=== PATIENT | male | born 1980 | race Caucasian/White ===

== ENCOUNTER 2019-01-15 10:52 | Inpatient (IN) ==
[2019-01-15] MEDS ORDERED: OPTIRAY 320 125ml IV PRN (11:05)
--- NOTE | 2019-01-15 11:10 | CT Scan Report ---
HEAD CT NONCONTRAST CT DOSE: 1154.88 mGy.cm HISTORY: right facial weakness, slurred speech TECHNIQUE: Multiaxial CT images of the head were performed without the use of intravenous contrast. A utomated exposure control was utilized for this study. A dose lowering technique was utilized adheri ng to the principles of ALARA. Comparison: None. Findings: The paranasal sinuses and mastoid air cells are clear. The calvarium and skull base are int act. The ventricles and sulci are within normal limits. There is no mass, hematoma, midline shift, or acute infarct. Focal hypodensity within the left periventricular white matter which measures approxi mately 2.6 cm. This appears to represent encephalomalacia from a subacute to chronic infarct/insult. Impression: Focal hypodensity within the left periventricular white matter which measures approximately 2.6 cm. T his appears to represent encephalomalacia from a subacute to chronic infarct/insult. Electronically signed by: Luis Bustillo M.D. 01/15/2019 11:09 AM
[2019-01-15 11:13] LABS: Basophils # (auto) 0.03 K/uL (0-0.2); Basophils % (auto) 0.5 %; Eosinophils # (auto) 0.12 K/uL (0-0.5); Eosinophils % (auto) 2.1 %; Hematocrit (blood only) 46.3 % (42-52); Hemoglobin 16.6 g/dL (14.0-18.0); Immature Granulocytes # (auto) 0.01 K/uL (0.00-0.02); Immature Granulocytes % (auto) 0.2 %; Lymphocytes # (auto) 2.07 K/uL (1.2-3.4); Mean Corpuscular Hemoglobin 30.9 pg (25-34); Mean Corpuscular Hgb Conc 35.9 g/dL (32-36); Mean Corpuscular Volume 86.2 fL (80-100); Monocytes # (auto) 0.34 K/uL (0.11-0.59); Monocytes % (auto) 6.1 %; Neutrophils # (auto) 3.03 K/uL (1.4-6.5); Neutrophils % (auto) 54.1 %; Platelet Count 250 K/uL (130-400); RDW Coefficient of Variation 12.9 % (11.5-14.5); RDW Standard Deviation 40.8 fL (36.4-46.3); Red Blood Count 5.37 M/uL (4.7-6.1)
[2019-01-15] MEDS ORDERED: INSULIN HUMAN REGULAR IV STA (11:14)
[2019-01-15 11:24] LABS: Partial Thromboplastin Ratio 0.9; Partial Thromboplastin Time 25.1 Seconds (21.0-31.0); Prothrombin Time 9.9 Seconds (9.0-12.0)
--- NOTE | 2019-01-15 11:26 | CT Scan Report ---
HEAD & NECK CTA HISTORY: right facial weakness, slurred speech TECHNIQUE: Multiaxial CT images of the head were performed following the intravenous administration o f contrast to evaluate the major cerebral vessels. Multiaxial CT images of the neck were also perform ed following the intravenous administration of contrast to evaluate the major cervical vessels. Maxim um intensity projection images were also obtained. A dose lowering technique was utilized adhering to the principles of ALARA. COMPARISON: Head CT 01/15/2019. FINDINGS: Hypodensity within the left periventricular white matter is better appreciated on the same day head C T. Visualized intracranial internal carotid arteries, distal vertebral arteries, and basilar artery a re widely patent. 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 The major dural venous sinuses are patent. The aortic arch and proximal great vessels are widely patent. There is no significant stenosis, occ lusion, or dissection identified within the bilateral common carotid, internal carotid, or vertebral arteries. Mild noncalcified atherosclerotic plaque within the bilateral carotid bulbs. IMPRESSION: 1. No significant stenosis, occlusion, or aneurysm within the [place]. 2. No significant stenosis, occlusion, or dissection identified within the carotid or vertebral arter ies. 3. Hypodensity within the left periventricular white matter is better appreciated on the same day hea d CT. Electronically signed by: Luis Bustillo M.D. 01/15/2019 11:24 AM
--- NOTE | 2019-01-15 11:26 | CT Scan Report ---
HEAD & NECK CTA HISTORY: right facial weakness, slurred speech TECHNIQUE: Multiaxial CT images of the head were performed following the intravenous administration o f contrast to evaluate the major cerebral vessels. Multiaxial CT images of the neck were also perform ed following the intravenous administration of contrast to evaluate the major cervical vessels. Maxim um intensity projection images were also obtained. A dose lowering technique was utilized adhering to the principles of ALARA. COMPARISON: Head CT 01/15/2019. FINDINGS: Hypodensity within the left periventricular white matter is better appreciated on the same day head C T. Visualized intracranial internal carotid arteries, distal vertebral arteries, and basilar artery a re widely patent. 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 The major dural venous sinuses are patent. The aortic arch and proximal great vessels are widely patent. There is no significant stenosis, occ lusion, or dissection identified within the bilateral common carotid, internal carotid, or vertebral arteries. Mild noncalcified atherosclerotic plaque within the bilateral carotid bulbs. IMPRESSION: 1. No significant stenosis, occlusion, or aneurysm within the [place]. 2. No significant stenosis, occlusion, or dissection identified within the carotid or vertebral arter ies. 3. Hypodensity within the left periventricular white matter is better appreciated on the same day hea d CT. Electronically signed by: Luis Bustillo M.D. 01/15/2019 11:24 AM
[2019-01-15 11:29] LABS: iSTAT Creatinine 0.9 mg/dl (0.6-1.3); iSTAT Hemoglobin 15.3 g/dl (14.0-18.0); iSTAT Ionized Calcium 1.18 mmol/l (1.12-1.32); iSTAT Potassium 5.7 mEq/L (3.3-5.0)
[2019-01-15] MEDS ORDERED: SODIUM CHLORIDE 0.9% 1000ML 1,000 ML IV SCH (11:30)
[2019-01-15] MEDS ORDERED: NovoLIN-R INSULIN PER UNIT CHARGE ONE (11:44)
[2019-01-15] MEDS ORDERED: ASPIRIN CHEW 324 MG PO STA (11:48)
[2019-01-15 11:59] LABS: Lyme Ab IgG w/WB Rflx Negative (Negative); Lyme Ab IgM w/WB Rflx Negative (Negative)
[2019-01-15 12:02] LABS: Appearance Urine Clear (Clear); Bilirubin Urine Negative (Negative); Blood Urine Negative (Negative); Color Urine Yellow; Glucose Urine UA 3+ (Negative); Ketones Urine Negative (Negative); Leukocyte Esterase Urine Negative (Negative); Nitrite Urine Negative (Negative); Protein Urine Negative (Negative); Specific Gravity Urine > 1.045 (1.000-1.030); Urobilinogen Urine Negative (Negative); pH Urine 5.5 (4.5-7.5)
[2019-01-15 12:04] LABS: Alanine Aminotransferase 23 U/L (12-78); Albumin Globulin Ratio 0.9 (0.9-2); Albumin Level 3.9 gm/dl (3.4-5.0); Alkaline Phosphatase 93 U/L (45-117); Aspartate Aminotransferase 14 U/L (15-37); BUN Creatinine Ratio 18.8 (10-20); Bilirubin,Total 0.7 mg/dl (0.2-1); Blood Urea Nitrogen 20 mg/dl (7-18); Calcium 9.3 mg/dl (8.5-10.1); Carbon Dioxide 30 mmol/L (21-32); Chloride 97 mmol/L (98-107); Creatinine Clr Calc Pharmacy 110.9 ml/min; Est GFR (African American) 103.9; Est GFR (Non-African American) 89.6; Globulin 4.4 gm/dl (2.5-4.0); Glucose 367 mg/dl (70-99); Magnesium 2.4 mg/dl (1.8-2.4); Potassium 4.5 mmol/L (3.5-5.1); Sodium 134 mmol/L (136-145); Total Protein 8.3 gm/dl (6.4-8.2); Troponin I < 0.015 ng/ml (0-0.045)
[2019-01-15 12:20] LABS: Beta-Hydroxybutyrate 1.93 mg/dl (0.2-2.81)
[2019-01-15 12:21] LABS: Amphetamines+Metham, Urine Neg (Neg); Barbiturates, Urine Neg (Neg); Benzodiazepine, Urine Neg (Neg); Cocaine, Urine Neg (Neg); MDMA (Ecstacy), Urine Neg (Neg); Methadone, Urine Neg (Neg); Opiate, Urine Neg (Neg); Phencyclidine, Urine Neg (Neg)
[2019-01-15] MEDS ORDERED: PHARMACY GLYCEMIC MGMT CONSULT PRN (13:01)
[2019-01-15] MEDS ORDERED: INSULIN GLARGINE SOLOSTAR 100 UNITS/ML 3 ML PEN SC ONE (13:15)
--- NOTE | 2019-01-15 14:18 | History & Physical Report ---
Date of Service January 15, 2019 Assessment & Plan (1) Transient ischemic attack: Admit to PCU on telemetry Vital signs every 4 hours Neurochecks every 4 hours for 24 hours Given aspirin 325 mg daily Started atorvastatin 40 mg daily and upgrade as needed when lipid panel available N.p.o. now until patient passes dysphagia past, and he passes the test DM type I diet Diabetic education Diabetic packet Patient does not know how to use his insulin pump adequately. Dysphasia test Speech pathology Echocardiogram MRI of the brain without contrast US lower extremity with venous Doppler to rule out DVT EKG pending Monitor CBC daily, A1c pending, lipid panel pending, TSH pending CMP 6 hours for hyperkalemia 5.7-->4.3 DVT prophylaxis Lovenox 40 mg subcu daily Full code Present on Admission?: Yes (2) Hyperglycemia: As the above Present on Admission?: Yes (3) Type 1 diabetes: As the above (4) Hyperkalemia: See above Present on Admission?: Yes History of Present Illness Chief Complaint: Fluids speech Primary Care Provider: NO PCP Aki patient is a 38 years old male with past medical history of type 1 diabetes as his only issue poorly controlled who was brought by the ambulance to the emergency room with a complaint of right side face droop slowed speech weakness in his right arm. Patient blood sugar admission was 422 which improved with IV insulin and Lantus. Per history patient felt that his tongue was swollen last night around 6 PM had to dinner and went to sleep. During the day he was celebrating his children's birthday. Before he went to sleep his told him that he should go to the emergency room which patient refused. In the morning patient woke up at 7 and continued to feel that his speech is slurred and he did not feel the right side of his face as well as he had some weakness in his right arm. At that time he decided to call EMS. In the ER telemetry stroke was called and Dr. Martell neurologist from [facility] recommended to do a work-up for stroke and not to give TPA since patient was out of the window. She recommended aspirin 325, atorvastatin average dose until lipid panel is available , improving glycemic control, neurochecks every 4 hours for 24 hours, telemetry admission, echocardiogram, rule out DVT, keep n.p.o. until patient pa sses swallow study, MRI of the brain. Revisiting patient again and discussing CTA of the head and neck it became more clear that patient does not have acute stroke and that similar occasion happened 10 years ago when patient fell from the stairs had slurred speech, he was taken to the emergency room but it was not suspected a stroke. The case was discussed with radiology Dr. Luis Bustillo who read the CTA of the head and neck and he stated that he believes that hypodensity within the left periventricular right white matter of 2.6 cm appears to be old or chronic stroke rather than new one. Labs were reviewed: White blood cell 5.6, red blood cells 5.3 hemoglobin 15.3 hematocrit 46.3 platelets 250. PT 9.9, INR 1, APTT 25.5. Sodium 133, potassium 5.7 chloride 95, BUN 23, creatinine 1.05, GFR 89.6, initial glucose 367, repeated 422, after IV insulin 188. AST 14, ALT 23, alkaline phosphatase 93, troponin I 0.015 Albumin 3.9. BNP pending TSH pending lipid panel pending, A1c pending. CTA of the head: No significant stenosis, occlusion or aneurysm within the [place]. No significant stenosis, occlusion or dissection identified within the carotid or vertebral arteries. Hypodensities in the left periventricular white matter is better appreciated on the CT of the head. CT of the head without contrast: Focal hypodensity within the left periventricular white matter which measures approximately 2.6 cm. This appears to represent encephalomalacia from subacute to chronic infarct. MRI brain pending. Decision was made to admit patient to the PCU on telemetry for transient ischemic attack and hyperglycemia. 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 Beliefs That Will Affect Care: None marital status: Current Living Situation: Family and Significant Other Other Information That Helps Us Care for You: No Feels Safe at Home: Yes Safety Concerns: Feels Safe At This Time Smoking Status: Never smoker Do You Dip or Chew Tobacco: No ; Second Hand Exposure: No ; Tobacco Cessation Education Requested by Patient: No Hx Alcohol Use: No Hx Substance Use: No Review of Systems Review of Systems: All systems reviewed & are unremarkable except as noted in HPI & below Physical Exam Constitutional: WD/WN, vitals as above well developed Eyes: PERRL, conjunctivae normal, anicteric sclerae ENMT: external ear and nose normal, oropharynx normal Neck: trachea midline, no thyromegaly Respiratory: normal respiratory effort, lungs clear to auscultation Cardiovascular: RRR, no murmur, no edema Chest (Breasts): normal inspection/palpation of breasts Gastrointestinal (Abdomen): normal bowel sounds, soft, nontender, no hepatosplenomegaly Musculoskeletal: no cyanosis or clubbing, extremities motor strength 5/5 Skin: no rashes, warm and dry Neurologic: Speech / Cognition: + abnormal speech (slurred speech) Right face droop disappeared and now normal. Right hand strong 5/5 Psychiatric: A+Ox3, euthymic affect Lymphatic: no cervical or axillary lymphadenopathy Results & Data Vital Signs (Past 12 Hours) Vital Signs Temp Pulse Pulse Resp BP BP Pulse Ox 01/15/19 12:50 87 18 138/91 98 01/15/19 11:52 82 18 161/85 H 98 01/15/19 11:14 36.8 C 78 18 161/96 H 97 Code Status & VTE Plan Code Status Full code VTE Prophylaxis Plan VTE Prophylaxis will be ordered: Yes PG Care Time/CCT Total # of Minutes Spent Total Time Spent with Patient: Total time spent is greater than 50% in coordination of care (as documented) at patient's floor/unit and/or counseling patient: (1) Type 1 diabetes Diabetes mellitus complication status: without complication Qualified Code(s): E10.9 - Type 1 diabetes mellitus without complications
[2019-01-15] MEDS ORDERED: SODIUM POLYSTYRENE SULFONATE 15G/60ML SUSP PO STA (14:47)
[2019-01-15] MEDS ORDERED: CARBOHYDRATES FOR HYPOGLYCEMIA PO PRN (15:15)
[2019-01-15] MEDS ORDERED: GLUCOSE 10 TABS/TUBE PO PRN ×2 (15:15→15:50)
[2019-01-15] MEDS ORDERED: GLUCAGON FOR INJ 1 MG VIAL IM PRN (15:15)
[2019-01-15] MEDS ORDERED: GLUCOSE 40% GEL 15 GM TUBE PO PRN ×2 (15:15→15:50)
[2019-01-15] MEDS ORDERED: DEXTROSE 50% 50 ML SYRINGE IV PRN ×2 (15:15→15:50)
--- NOTE | 2019-01-15 15:40 | Magnetic Resonance Report ---
Brain MRI WITH AND WITHOUT CONTRAST HISTORY: Facial droop. Slurred speech. Abnormal head CT. TECHNIQUE: Multiplanar multisequence MRI of the brain was performed both before and after the intrave nous administration of contrast. COMPARISON STUDY: Head CT 01/15/2019. FINDINGS: Multiple foci restricted diffusion seen within the cortical and white matter of the left fr ontal lobe. Dominant area within the left periventricular white matter measures 2.8 cm. The majority of the cortical foci of restricted diffusion are subcentimeter. These are consistent with acute infar cts. These are likely within the left MCA territory. Vasogenic edema associated with the left frontal infarction. The midline structures are intact. A few additional scattered punctate foci of T2 hyperi ntensity seen within the white matter of the supratentorial brain are nonspecific but could represent microvascular ischemic change, a demyelinating disease, or a vasculitis in the appropriate clinical setting. No acute hemorrhage or midline shift. The paranasal sinuses and mastoid air cells are clear. The intravascular flow voids at the skull base are well-maintained. The ventricles are normal in siz e. 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 Electronically signed by: Luis Bustillo M.D. 01/15/2019 3:38 PM
[2019-01-15] MEDS ORDERED: GLUCAGON FOR INJ 1 MG VIAL SQ PRN (15:50)
[2019-01-15] MEDS ORDERED: ACETAMINOPHEN 325 MG TAB PO PRN (15:50)
[2019-01-15] MEDS ORDERED: ZOLPIDEM TARTRATE 5 MG TAB PO PRN (15:50)
[2019-01-15] MEDS ORDERED: PHARMACY GLYCEMIC MGMT CONSULT STA (15:50)
[2019-01-15] MEDS ORDERED: DC ALL PREVIOUSLY ORDERED DIABETES MEDS ONE (15:50)
[2019-01-15] MEDS ORDERED: MAGNESIUM HYDROXIDE SUSP 30 ML UDC PO PRN (15:50)
[2019-01-15] MEDS ORDERED: POLYETHYLENE (MIRALAX) 17 GM PACK PO PRN (15:50)
[2019-01-15] MEDS ORDERED: ALUMINUM/MAGNESIUM SUSP 30 ML UDC PO PRN (15:50)
[2019-01-15] MEDS: SODIUM CHLORIDE 0.9% 1000ML 1,000 ML IV SCH (16:20)
[2019-01-15 16:36] LABS: Albumin Level 3.5 gm/dl (3.4-5.0); BUN Creatinine Ratio 20.1 (10-20); Calcium 9.5 mg/dl (8.5-10.1); Creatinine Clr Calc Pharmacy 129.4 ml/min; Est GFR (African American) 125.1; Potassium 4.3 mmol/L (3.5-5.1)
[2019-01-15 16:38] LABS: Albumin Globulin Ratio 0.9 (0.9-2); Bilirubin,Total 0.7 mg/dl (0.2-1); Globulin 4.1 gm/dl (2.5-4.0); Total Protein 7.6 gm/dl (6.4-8.2)
--- NOTE | 2019-01-15 16:44 | Emergency Department Note ---
Entered by Nahed Hsu acting as a scribe for ED Provider Note Name: Fan Sapp Age: 38 Arrives Via: EMS Informant: Patient CC: Stroke like symptoms HPI: A 38 year old male arrives for evaluation of stroke like symptoms. He and note he felt like his tongue was not working last night and he had slurred speech. He woke up at 0800 and slurred speech was much worse along with right facial weakness and seemed a little confused. EMS was called after patient finally agreed to go to the hospital, which was a few hours later. EMS was called in vessel captain. He had a blood sugar of 330 en route. No medications. Nothing makes symptoms better or worse. Denies headache, chest pain, abdominal pain, black or boody stools, falls, injuries,. No recent neck pain, passing out, rashes, fevers. ROS: See above HPI for pertinent positives & negatives. A total of 10 systems reviewed and were otherwise negative. Past Medical History: Diabetic with no other past med hx,. On insulin. Uses insulin pump. Past Surgical History: No previous surgeries Family History: No pertinent family history Social History: . No smoking, drinking, or drugs. Home Medications: Insulin Allergies None Physical: Vitals: BP 161/96, P 78, R 18, O2 97%, Temp 98.2 Exam: GENERAL: Patient is well appearing and in no acute distress. EYES: No scleral icterus, unremarkable pupils. ENT: Mucous membranes moist, no nasal congestion. NECK: No masses appreciated, no meningismus, trachea is midline. RESPIRATORY: No dyspnea. Clear to auscultation and equal bilaterally. No wheeze, no rhonchi. CARDIOVASCULAR: Regular rate and rhythm. No murmurs, rubs, gallops appreciated. GASTROINTESTINAL: Abdomen soft, non-tender, no peritonitis. Bowel sounds positive. No masses appreciated. BACK: No midline tenderness, no CVA tenderness EXTREMITIES: Normal motion all extremities, no cyanosis, no edema. NEUROLOGIC: Unaware of time of year but aware of name, location, and family. Right facial weakness, upper and lower. Able to overcome upper weakness but not lower. Slurred speech with mild deviation of tongue to the right. SKIN: No rash, no jaundice, no diaphoresis. ED Course: Prior Medical Record, Triage/Nursing Notes, Medications, Allergies reviewed by Me Vital Signs: reviewed and remarkable for HTN Labs: Reviewed and remarkable for hyperglycemia Interventions: saline lock, asa 324mg po, nss infusion, insulin regular 10Units IV Imaging: Radiology results as stated below per my review and the radiologist's interpretation: HEAD CT NONCONTRAST CT DOSE: 1154.88 mGy.cm HISTORY: right facial weakness, slurred speech TECHNIQUE: Multiaxial CT images of the head were performed without the use of intravenous contrast. Automated exposure control was utilized for this study. A dose lowering technique was utilized adhering to the principles of ALARA. Comparison: None. Findings: The paranasal sinuses and mastoid air cells are clear. The calvarium and skull base are intact. The ventricles and sulci are within normal limits. There is no mass, hematoma, midline shift, or acute infarct. Focal hypodensity within the left periventricular white matter which measures approximately 2.6 cm. This appears to represent encephalomalacia from a subacute to chronic infarct/insult. Impression: Focal hypodensity within the left periventricular white matter which measures approximately 2.6 cm. This appears to represent encephalomalacia from a subacute to chronic infarct/insult. Electronically signed by: Luis Bustillo M.D. 01/15/2019 11:09 AM HEAD & NECK CTA HISTORY: right facial weakness, slurred speech TECHNIQUE: Multiaxial CT images of the head were performed following the intravenous administration of contrast to evaluate the major cerebral vessels. Multiaxial CT images of the neck were also performed following the intravenous administration of contrast to evaluate the major cervical vessels. Maximum intensity projection images were also obtained. A dose lowering technique was utilized adhering to the principles of ALARA. COMPARISON: Head CT 01/15/2019. FINDINGS: Hypodensity within the left periventricular white matter is better appreciated on the same day head CT. Visualized intracranial internal carotid arteries, distal vertebral arteries, and basilar artery are widely patent. There is no significant stenosis, occlusion, or aneurysm seen within the bilateral ACAs, MCAs, or oncology account specialist. The major dural venous sinuses are patent. The aortic arch and proximal great vessels are widely patent. There is no significant stenosis, occlusion, or dissection identified within the bilateral common carotid, internal carotid, or vertebral arteries. Mild noncalcified atherosclerotic plaque within the bilateral carotid bulbs. IMPRESSION: 1. No significant stenosis, occlusion, or aneurysm within the [place]. 2. No significant stenosis, occlusion, or dissection identified within the carotid or vertebral arteries. 3. Hypodensity within the left periventricular white matter is better appreciated on the same day head CT. Electronically signed by: Luis Bustillo M.D. 01/15/2019 11:24 AM HEAD & NECK CTA HISTORY: right facial weakness, slurred speech TECHNIQUE: Multiaxial CT images of the head were performed following the intravenous administration of contrast to evaluate the major cerebral vessels. Multiaxial CT images of the neck were also performed following the intravenous administration of contrast to evaluate the major cervical vessels. Maximum intensity projection images were also obtained. A dose lowering technique was utilized adhering to the principles of ALARA. COMPARISON: Head CT 01/15/2019. FINDINGS: Hypodensity within the left periventricular white matter is better appreciated on the same day head CT. Visualized intracranial internal carotid arteries, distal vertebral arteries, and basilar artery are widely patent. There is no significant stenosis, occlusion, or aneurysm seen within the bilateral ACAs, MCAs, or oncology account specialist. The major dural venous sinuses are patent. The aortic arch and proximal great vessels are widely patent. There is no significant stenosis, occlusion, or dissection identified within the bilateral common carotid, internal carotid, or vertebral arteries. Mild noncalcified atherosclerotic plaque within the bilateral carotid bulbs. IMPRESSION: 1. No significant stenosis, occlusion, or aneurysm within the [place]. 2. No significant stenosis, occlusion, or dissection identified within the carotid or vertebral arteries. 3. Hypodensity within the left periventricular white matter is better appre ciated on the same day head CT. Electronically signed by: Luis Bustillo M.D. 01/15/2019 11:24 AM EKG: Per My Interpretation: Indication Stroke Symptoms: NSR 85 bpm qtc 423 without ectopy nor ischemia. No previous for comparison Blood pressure: 161/85 Elevated - Further management by hospitalist Course: 1115: The patient was seen and evaluated in room B1. A complete history and physical exam was performed. Consults: 1120: Discussed the patients case with Mariam Mayorga stroke ne urologist. She states no tPA at this time. If CTA shows acute occlusion. If CT A normal, then start aspirin and may start fluids as well. 1148: I discussed the patient's case with Dr. Sears, [facility] Hospitalist. She will evaluate the patient for further management. Disposition: Admitted Prescriptions: None. Differentials: Stroke, [place] Palsy, Lyme Disease, Dissection, Intracranial hemorrhage, DKA, hyperglycemia, drug and alcohol use, amongst other pathologies. Medical Decision Makin yr old poorly controlled diabetic on insulin arrives for evaluation of slurred speech and right facial weakness. Symptoms clearly started last evening which is over 12 hours ago and he is well outside of window for TPA. I took medical command and made him stroke alert prior to arrival and thus went straight to CT revealing no acute bleed but likely sub-acute/chronic left infarct. CTA negative for acute occlusion. Reviewed with Stroke Neuro who agree no TPA indicated and if CTA without acute large occlusion no indication for emergent transfer. Patient given ASA 324mg PO and will need to be admitted to hospital for further work-up and evaluation. He was found to be quite hyperglycemic without evidence of DKA. Given Insulin IV to start getting bsg under control. Impression: Acute ischemic stroke Hyperglycemia Type ! diabetes Right facial weakness Slurred Speech Critical Care Time: I have personally spent greater than 30 minutes of critical care time in the direct management of this patient. Acute stroke with stroke alert called, emergent neurology consultation and discussion on tpa/intervention. This was a life/limb threatening event. This includes time spent evaluating patient, direct bedside care, chart review, placing orders, interpretation of diagnostic studies, discussion with consultants, patient, and family members, as well as other required patient management activities. This 30 minutes is in excess of all separately billable procedures. 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 Beliefs That Will Affect Care: None marital status: Current Living Situation: Family and Significant Other Feels Safe at Home: Yes Smoking Status: Never smoker Second Hand Exposure: No ; Hx Alcohol Use: No Hx Substance Use: No Results & Data Vital Signs Vital Signs - 24 hr 01/15/19 11:14 01/15/19 11:52 01/15/19 12:50 Temperature 36.8 C Temperature Source Oral Sepsis Recent Fever Within 48 Hours No Sepsis Action Taken by Nursing No Action Required Pulse Rate 78 Pulse Rate [Left] 82 87 Pulse Rhythm Regular Pulse Rhythm [Left] Regular Regular Pulse Strength Normal Pulse Strength [Left] Normal Normal Respiratory Rate 18 18 18 Respiratory Effort / Characteristics Non-Labored Spontaneous Non-Labored Spontaneous Non-Labored Spontaneous Respiratory Depth Normal Normal Normal Respiratory Pattern Regular Regular Blood Pressure 161/96 H Blood Pressure [Left Arm] 161/85 H 138/91 Blood Pressure Mean 117 Blood Pressure Mean [Left Arm] 110 106 Blood Pressure Position Lying Blood Pressure Position [Left Arm] Lying Lying Pulse Oximetry 97 98 98 Oxygen Delivery Method Room Air Room Air Room Air Home Medications Current Medication List: was personally reviewed by me Laboratory Data Attestation: I reviewed the patient's lab results. Result diagrams: 01/15/19 10:30 01/15/19 16:10 Lab Results 01/15/19 01/15/19 01/15/19 Range/Units 10:30 10:30 10:30 WBC 5.60 (4.8-10.8) K/uL RBC 5.37 (4.7-6.1) M/uL Hgb 16.6 (14.0-18.0) g/dL POC Hgb (14.0-18.0) g/dl Hct 46.3 (42-52) % POC Hct (42-52) % MCV 86.2 (80-100) fL MCH 30.9 (25-34) pg MCHC 35.9 (32-36) g/dL RDW Std Deviation 40.8 (36.4-46.3) fL RDW Coeff of Flak[place] 12.9 (11.5-14.5) % Plt Count 250 (130-400) K/uL MPV 11.0 H (7.4-10.4) fL Immature Gran % (Auto) 0.2 % Neut % (Auto) 54.1 % Lymph % (Auto) 37.0 % [place] % (Auto) 6.1 % Eos % (Auto) 2.1 % Baso % (Auto) 0.5 % Immature Gran # (Auto) 0.01 (0.00-0.02) K/uL Neut # (Auto) 3.03 (1.4-6.5) K/uL Lymph # (Auto) 2.07 (1.2-3.4) K/uL [place] # (Auto) 0.34 (0.11-0.59) K/uL Eos # (Auto) 0.12 (0-0.5) K/uL Baso # (Auto) 0.03 (0-0.2) K/uL PT 9.9 (9.0-12.0) Seconds INR 1.0 (0.9-1.1) APTT 25.1 (21.0-31.0) Seconds PTT Ratio 0.9 POC Sodium (135-144) mEq/L Sodium 134 L (136-145) mmol/L POC Potassium (3.3-5.0) mEq/L Potassium 4.5 (3.5-5.1) mmol/L POC Chloride (101-112) mEq/L Chloride 97 L (98-107) mmol/L Carbon Dioxide 30 (21-32) mmol/L POC Total CO2 (24-31) mEq/l Anion Gap 7.0 (3-11) POC Anion Gap (16-25) mmol/L POC BUN (7-18) mg/dl BUN 20 H (7-18) mg/dl Creatinine 1.05 (0.6-1.4) mg/dl POC Creatinine (0.6-1.3) mg/dl Est Cr Clr Drug Dosing 110.9 ml/min Est GFR ( Amer) 103.9 Est GFR (Non-Af Amer) 89.6 BUN/Creatinine Ratio 18.8 (10-20) Glucose 367 H* (70-99) mg/dl POC Glucose (70-99) POC Glucose (other) (70-99) mg/dl Calcium 9.3 (8.5-10.1) mg/dl POC Ioniz Calcium Antonella (1.12-1.32) mmol/l Magnesium 2.4 (1.8-2.4) mg/dl Total Bilirubin 0.7 (0.2-1) mg/dl AST 14 L (15-37) U/L ALT 23 (12-78) U/L Alkaline Phosphatase 93 (45-117) U/L Troponin I < 0.015 (0-0.045) ng/ml Total Protein 8.3 H (6.4-8.2) gm/dl Albumin 3.9 (3.4-5.0) gm/dl Globulin 4.4 H (2.5-4.0) gm/dl Albumin/Globulin Ratio 0.9 (0.9-2) Beta-Hydroxybutyric Acd 1.93 (0.2-2.81) mg/dl Urine Color Urine Appearance (Clear) Urine pH (4.5-7.5) Ur Specific [place] (1.000-1.030) Urine Protein (Negative) Urine Glucose (UA) (Negative) Urine Ketones (Negative) Urine Blood (Negative) Urine Nitrite (Negative) Urine Bilirubin (Negative) Urine Urobilinogen (Negative) Ur Leukocyte Esterase (Negative) Urine Opiates Screen (Neg) Ur Methadone, Qual (Neg) Urine Barbiturates (Neg) Ur Phencyclidine (PCP) (Neg) U Amphetamin/Meth Scrn (Neg) MDMA (Ecstasy) Screen (Neg) U Benzodiazepines Scrn (Neg) Ur Cocaine Metabolite (Neg) U Marijuana (THC) Screen (Neg) Ethyl Alcohol mg/dL (0-3) mg/dl Lyme Disease IgG Ab (Negative) Lyme Disease IgM Ab (Negative) Blood Type Antibody Screen 01/15/19 01/15/19 01/15/19 Range/Units 10:30 10:57 11:12 WBC (4.8-10.8) K/uL RBC (4.7-6.1) M/uL Hgb (14.0-18.0) g/dL POC Hgb 15.3 (14.0-18.0) g/dl Hct (42-52) % POC Hct 45 (42-52) % MCV (80-100) fL MCH (25-34) pg MCHC (32-36) g/dL RDW Std Deviation (36.4-46.3) fL RDW Coeff of [place] (11.5-14.5) % Plt Count (130-400) K/uL MPV (7.4-10.4) fL Immature Gran % (Auto) % Neut % (Auto) % Lymph % (Auto) % [place] % (Auto) % Eos % (Auto) % Baso % (Auto) % Immature Gran # (Auto) (0.00-0.02) K/uL Neut # (Auto) (1.4-6.5) K/uL Lymph # (Auto) (1.2-3.4) K/uL [place] # (Auto) (0.11-0.59) K/uL Eos # (Auto) (0-0.5) K/uL Baso # (Auto) (0-0.2) K/uL PT (9.0-12.0) Seconds INR (0.9-1.1) APTT (21.0-31.0) Seconds PTT Ratio POC Sodium 133 L (135-144) mEq/L Sodium (136-145) mmol/L POC Potassium 5.7 H (3.3-5.0) mEq/L Potassium (3.5-5.1) mmol/L POC Chloride 95 L (101-112) mEq/L Chloride (98-107) mmol/L Carbon Dioxide (21-32) mmol/L POC Total CO2 29 (24-31) mEq/l Anion Gap (3-11) POC Anion Gap 15.0 L (16-25) mmol/L POC BUN 23 H (7-18) mg/dl BUN (7-18) mg/dl Creatinine (0.6-1.4) mg/dl POC Creatinine 0.9 (0.6-1.3) mg/dl Est Cr Clr Drug Dosing ml/min Est GFR ( Amer) Est GFR (Non-Af Amer) BUN/Creatinine Ratio (10-20) Glucose (70-99) mg/dl POC Glucose 391 H* (70-99) POC Glucose (other) 422 H* (70-99) mg/dl Calcium (8.5-10.1) mg/dl POC Ioniz Calcium Antonella 1.18 (1.12-1.32) mmol/l Magnesium (1.8-2.4) mg/dl Total Bilirubin (0.2-1) mg/dl AST (15-37) U/L ALT (12-78) U/L Alkaline Phosphatase (45-117) U/L Troponin I (0-0.045) ng/ml Total Protein (6.4-8.2) gm/dl Albumin (3.4-5.0) gm/dl Globulin (2.5-4.0) gm/dl Albumin/Globulin Ratio (0.9-2) Beta-Hydroxybutyric Acd (0.2-2.81) mg/dl Urine Color Urine Appearance (Clear) Urine pH (4.5-7.5) Ur Specific [place] (1.000-1.030) Urine Protein (Negative) Urine Glucose (UA) (Negative) Urine Ketones (Negative) Urine Blood (Negative) Urine Nitrite (Negative) Urine Bilirubin (Negative) Urine Urobilinogen (Negative) Ur Leukocyte Esterase (Negative) Urine Opiates Screen (Neg) Ur Methadone, Qual (Neg) Urine Barbiturates (Neg) Ur Phencyclidine (PCP) (Neg) U Amphetamin/Meth Scrn (Neg) MDMA (Ecstasy) Screen (Neg) U Benzodiazepines Scrn (Neg) Ur Cocaine Metabolite (Neg) U Marijuana (THC) Screen (Neg) Ethyl Alcohol mg/dL (0-3) mg/dl Lyme Disease IgG Ab Negative (Negative) Lyme Disease IgM Ab Negative (Negative) Blood Type Antibody Screen 01/15/19 01/15/19 01/15/19 Range/Units 11:24 11:24 11:50 WBC (4.8-10.8) K/uL RBC (4.7-6.1) M/uL Hgb (14.0-18.0) g/dL POC Hgb (14.0-18.0) g/dl Hct (42-52) % POC Hct (42-52) % MCV (80-100) fL MCH (25-34) pg MCHC (32-36) g/dL RDW Std Deviation (36.4-46.3) fL RDW Coeff of Flakita (11.5-14.5) % Plt Count (130-400) K/uL MPV (7.4-10.4) fL Immature Gran % (Auto) % Neut % (Auto) % Lymph % (Auto) % [place] % (Auto) % Eos % (Auto) % Baso % (Auto) % Immature Gran # (Auto) (0.00-0.02) K/uL Neut # (Auto) (1.4-6.5) K/uL Lymph # (Auto) (1.2-3.4) K/uL [place] # (Auto) (0.11-0.59) K/uL Eos # (Auto) (0-0.5) K/uL Baso # (Auto) (0-0.2) K/uL PT (9.0-12.0) Seconds INR (0.9-1.1) APTT (21.0-31.0) Seconds PTT Ratio POC Sodium (135-144) mEq/L Sodium (136-145) mmol/L POC Potassium (3.3-5.0) mEq/L Potassium (3.5-5.1) mmol/L POC Chloride (101-112) mEq/L Chloride (98-107) mmol/L Carbon Dioxide (21-32) mmol/L POC Total CO2 (24-31) mEq/l Anion Gap (3-11) POC Anion Gap (16-25) mmol/L POC BUN (7-18) mg/dl BUN (7-18) mg/dl Creatinine (0.6-1.4) mg/dl POC Creatinine (0.6-1.3) mg/dl Est Cr Clr Drug Dosing ml/min Est GFR ( Amer) Est GFR (Non-Af Amer) BUN/Creatinine Ratio (10-20) Glucose (70-99) mg/dl POC Glucose (70-99) POC Glucose (other) (70-99) mg/dl Calcium (8.5-10.1) mg/dl POC Ioniz Calcium [place]ella (1.12-1.32) mmol/l Magnesium (1.8-2.4) mg/dl Total Bilirubin (0.2-1) mg/dl AST (15-37) U/L ALT (12-78) U/L Alkaline Phosphatase (45-117) U/L Troponin I (0-0.045) ng/ml Total Protein (6.4-8.2) gm/dl Albumin (3.4-5.0) gm/dl Globulin (2.5-4.0) gm/dl Albumin/Globulin Ratio (0.9-2) Beta-Hydroxybutyric Acd (0.2-2.81) mg/dl Urine Color Urine Appearance (Clear) Urine pH (4.5-7.5) Ur Specific [place] (1.000-1.030) Urine Protein (Negative) Urine Glucose (UA) (Negative) Urine Ketones (Negative) Urine Blood (Negative) Urine Nitrite (Negative) Urine Bilirubin (Negative) Urine Urobilinogen (Negative) Ur Leukocyte Esterase (Negative) Urine Opiates Screen Neg (Neg) Ur Methadone, Qual Neg (Neg) Urine Barbiturates Neg (Neg) Ur Phencyclidine (PCP) Neg (Neg) U Amphetamin/Meth Scrn Neg (Neg) MDMA (Ecstasy) Screen Neg (Neg) U Benzodiazepines Scrn Neg (Neg) Ur Cocaine Metabolite Neg (Neg) U Marijuana (THC) Screen Neg (Neg) Ethyl Alcohol mg/dL < 3.0 (0-3) mg/dl Lyme Disease IgG Ab (Negative) Lyme Disease IgM Ab (Negative) Blood Type A Positive Antibody Screen NEGATIVE 01/15/19 01/15/19 Range/Units 11:50 12:47 WBC (4.8-10.8) K/uL RBC (4.7-6.1) M/uL Hgb (14.0-18.0) g/dL POC Hgb (14.0-18.0) g/dl Hct (42-52) % POC Hct (42-52) % MCV (80-100) fL MCH (25-34) pg MCHC (32-36) g/dL RDW Std Deviation (36.4-46.3) fL RDW Coeff of Flak[place] (11.5-14.5) % Plt Count (130-400) K/uL MPV (7.4-10.4) fL Immature Gran % (Auto) % Neut % (Auto) % Lymph % (Auto) % [place] % (Auto) % Eos % (Auto) % Baso % (Auto) % Immature Gran # (Auto) (0.00-0.02) K/uL Neut # (Auto) (1.4-6.5) K/uL Lymph # (Auto) (1.2-3.4) K/uL [place] # (Auto) (0.11-0.59) K/uL Eos # (Auto) (0-0.5) K/uL Baso # (Auto) (0-0.2) K/uL PT (9.0-12.0) Seconds INR (0.9-1.1) APTT (21.0-31.0) Seconds PTT Ratio POC Sodium (135-144) mEq/L Sodium (136-145) mmol/L POC Potassium (3.3-5.0) mEq/L Potassium (3.5-5.1) mmol/L POC Chloride (101-112) mEq/L Chloride (98-107) mmol/L Carbon Dioxide (21-32) mmol/L POC Total CO2 (24-31) mEq/l Anion Gap (3-11) POC Anion Gap (16-25) mmol/L POC BUN (7-18) mg/dl BUN (7-18) mg/dl Creatinine (0.6-1.4) mg/dl POC Creatinine (0.6-1.3) mg/dl Est Cr Clr Drug Dosing ml/min Est GFR ( Amer) Est GFR (Non-Af Amer) BUN/Creatinine Ratio (10-20) Glucose (70-99) mg/dl POC Glucose 188 H (70-99) POC Glucose (other) (70-99) mg/dl Calcium (8.5-10.1) mg/dl POC Ioniz Calcium Antonella (1.12-1.32) mmol/l Magnesium (1.8-2.4) mg/dl Total Bilirubin (0.2-1) mg/dl AST (15-37) U/L ALT (12-78) U/L Alkaline Phosphatase (45-117) U/L Troponin I (0-0.045) ng/ml Total Protein (6.4-8.2) gm/dl Albumin (3.4-5.0) gm/dl Globulin (2.5-4.0) gm/dl Albumin/Globulin Ratio (0.9-2) Beta-Hydroxybutyric Acd (0.2-2.81) mg/dl Urine Color Yellow Urine Appearance Clear (Clear) Urine pH 5.5 (4.5-7.5) Ur Specific [place] > 1.045 H (1.000-1.030) Urine Protein Negative (Negative) Urine Glucose (UA) 3+ H (Negative) Urine Ketones Negative (Negative) Urine Blood Negative (Negative) Urine Nitrite Negative (Negative) Urine Bilirubin Negative (Negative) Urine Urobilinogen Negative (Negative) Ur Leukocyte Esterase Negative (Negative) Urine Opiates Screen (Neg) Ur Methadone, Qual (Neg) Urine Barbiturates (Neg) Ur Phencyclidine (PCP) (Neg) U Amphetamin/Meth Scrn (Neg) MDMA (Ecstasy) Screen (Neg) U Benzodiazepines Scrn (Neg) Ur Cocaine Metabolite (Neg) U Marijuana (THC) Screen (Neg) Ethyl Alcohol mg/dL (0-3) mg/dl Lyme Disease IgG Ab (Negative) Lyme Disease IgM Ab (Negative) Blood Type Antibody Screen Administered Medications Sodium Chloride (Nss 1000ml) 1,000 mls @ 80 mls/hr IV .[id number] MIKE Stop: 02/14/19 15:49 Last Admin: 01/15/19 16:20 Dose: 80 mls/hr Documented by: [id number] Discontinued Medications Aspirin (Aspirin) 324 mg PO NOW STA Stop: 01/15/19 11:49 Last Admin: 01/15/19 12:43 Dose: 324 mg Documented by: [id number] Sodium Chloride (Nss 1000ml) 1,000 mls @ 125 mls/hr IV .Q8H MIKE Stop: 02/14/19 11:29 Last Infusion: 01/15/19 16:24 Dose: 0 mls/hr Documented by: [id number] Admin: 01/15/19 11:36 Dose: 125 mls/hr Documented by: [id number] Insulin Glargine (Lantus Solostar Pen) 25 units SC ONE ONE Stop: 01/15/19 13:16 Last Admin: 01/15/19 13:28 Dose: 25 units Documented by: [id number] Cosigned by: [id number] Insulin Human Regular (Novolin R) 10 units IV NOW STA Stop: 01/15/19 11:15 Last Admin: 01/15/19 11:51 Dose: 10 units Documented by: [id number] Cosigned by: [id number] Insulin Human Regular (Novolin R U-100 Per Unit) Confirm Administered Dose 10 units .ROUTE .STK-MED ONE Stop: 01/15/19 11:45 Last Admin: 01/15/19 11:52 Dose: Not Given Documented by: [id number] Ioversol (Optiray 320 125ml) 120 ml IV ONCE PRN PRN Reason: Interaction Checking Stop: 01/19/19 11:04 Last Admin: 01/15/19 11:05 Dose: 120 ml Documented by: [id number] Miscellaneous Information (Dc All Previously Ordered Diabetes Meds) 1 ea N/A ONE ONE Stop: 01/15/19 15:51 Last Admin: 01/15/19 16:24 Dose: 1 ea Documented by: [id number] Sodium Polystyrene Sulfonate (Kayexalate) 15 gm PO NOW STA Stop: 01/15/19 14:48 Last Admin: 01/15/19 16:23 Dose: Not Given Documented by: [id number] Imaging Data Radiologist's Impression: Radiology results as stated below per my review and the radiologist's interpretation: HEAD CT NONCONTRAST CT DOSE: 1154.88 mGy.cm HISTORY: right facial weakness, slurred speech TECHNIQUE: Multiaxial CT images of the head were performed without the use of intravenous contrast. Automated exposure control was utilized for this study. A dose lowering technique was utilized adhering to the principles of ALARA. Comparison: None. Findings: The paranasal sinuses and mastoid air cells are clear. The calvarium and skull base are intact. The ventricles and sulci are within normal limits. There is no mass, hematoma, midline shift, or acute infarct. Focal hypodensity within the left periventricular white matter which measures approximately 2.6 cm. This appears to represent encephalomalacia from a subacute to chronic infarct/insult. Impression: Focal hypodensity within the left periventricular white matter which measures approximately 2.6 cm. This appears to represent encephalomalacia from a subacute to chronic infarct/insult. Electronically signed by: Luis Bustillo M.D. 01/15/2019 11:09 AM HEAD & NECK CTA HISTORY: right facial weakness, slurred speech TECHNIQUE: Multiaxial CT images of the head were performed following the intravenous administration of contrast to evaluate the major cerebral vessels. Multiaxial CT images of the neck were also performed following the intravenous administration of contrast to evaluate the major cervical vessels. Maximum intensity projection images were also obtained. A dose lowering technique was utilized adhering to the principles of ALARA. COMPARISON: Head CT 01/15/2019. FINDINGS: Hypodensity within the left periventricular white matter is better appreciated on the same day head CT. Visualized intracranial internal carotid arteries, d istal vertebral arteries, and basilar artery are widely patent. There is no significant stenosis, occlusion, or aneurysm seen within the bilateral ACAs, MCAs, or oncology account specialist. The major dural venous sinuses are patent. The aortic arch and proximal great vessels are widely patent. There is no significant stenosis, occlusion, or dissection identified within the bilateral common carotid, internal carotid, or vertebral arteries. Mild noncalcified atherosclerotic plaque within the bilateral carotid bulbs. IMPRESSION: 1. No significant stenosis, occlusion, or aneurysm within the [place]. 2. No significant stenosis, occlusion, or dissection identified within the carotid or vertebral arteries. 3. Hypodensity within the left periventricular white matter is better appreciated on the same day head CT. Electronically signed by: Luis Bustillo M.D. 01/15/2019 11:24 AM HEAD & NECK CTA HISTORY: right facial weakness, slurred speech TECHNIQUE: Multiaxial CT images of the head were performed following the intravenous administration of contrast to evaluate the major cerebral vessels. Multiaxial CT images of the neck were also performed following the intravenous administration of contrast to evaluate the major cervical vessels. Maximum intensity projection images were also obtained. A dose lowering technique was utilized adhering to the principles of ALARA. COMPARISON: Head CT 01/15/2019. FINDINGS: Hypodensity within the left periventricular white matter is better appreciated on the same day head CT. Visualized intracranial internal carotid arteries, distal vertebral arteries, and basilar artery are widely patent. There is no significant stenosis, occlusion, or aneurysm seen within the bilateral ACAs, MCAs, or oncology account specialist. The major dural venous sinuses are patent. The aortic arch and proximal great vessels are widely patent. There is no significant stenosis, occlusion, or dissection identified within the bilateral common carotid, internal carotid, or vertebral arteries. Mild noncalcified atherosclerotic plaque within the bilateral carotid bulbs. IMPRESSION: 1. No significant stenosis, occlusion, or aneurysm within the [place]. 2. No significant stenosis, occlusion, or dissection identified within the carotid or vertebral arteries. 3. Hypodensity within the left periventricular white matter is better appreciated on the same day head CT. Electronically signed by: Luis Bustillo M.D. 01/15/2019 11:24 AM Blood Pressure Blood Pressure Findings: Elevated blood pressure Blood Pressure Disposition: further management by hospitalist Discharge Plan Visit Data *Final* Discharge Date/Time: 01/15/19 15:22 Chief Complaint: Stroke Alert ED Provider: Chang Myers Discharge Problem: Acute ischemic stroke, Hyperglycemia, Type 1 diabetes, Weakness on right side of face, Slurred speech Patient Disposition: Admitted As Inpatient Discharge Instructions Interventions: ED Discharge Assessment Last Done: 01/15/19 15:22 Discharge Problem: Type 1 diabetes Qualifiers: Diabetes mellitus complication status: without complication Qualified Code(s): E10.9 - Type 1 diabetes mellitus without complications The scribe's documentation has been prepared under my direction and personally reviewed by me in its entirety. I confirm that the note above accurately reflects all work, treatment, procedures, and medical decision making performed by me.
[2019-01-15] MEDS: ATORVASTATIN 40 MG TAB PO SCH (17:07)
[2019-01-15] MEDS: INSULIN ASPART 100 UNITS/ML 3 ML PEN SC SCH (17:08)
[2019-01-15] MEDS: ENOXAPARIN INJ 40 MG/0.4 ML SYR SQ SCH (17:42)
[2019-01-15 22:22] LABS: Albumin Globulin Ratio 0.9 (0.9-2); Albumin Level 3.4 gm/dl (3.4-5.0); BUN Creatinine Ratio 22.7 (10-20); Bilirubin,Total 0.7 mg/dl (0.2-1); Calcium 8.9 mg/dl (8.5-10.1); Creatinine Clr Calc Pharmacy 143.8 ml/min; Est GFR (African American) 130.7; Est GFR (Non-African American) 112.7; Globulin 3.7 gm/dl (2.5-4.0); Potassium 3.5 mmol/L (3.5-5.1); Total Protein 7.1 gm/dl (6.4-8.2)
[2019-01-15] MEDS ORDERED: CLOPIDOGREL BISULFATE 300 MG TAB PO STA (23:44)
[2019-01-16] MEDS: INSULIN ASPART 100 UNITS/ML 3 ML PEN SC SCH ×5 (00:48→20:45)
[2019-01-16] MEDS: SODIUM CHLORIDE 0.9% 1000ML 1,000 ML IV SCH ×2 (04:14→14:57)
[2019-01-16 04:39] LABS: Basophils # (auto) 0.03 K/uL (0-0.2); Basophils % (auto) 0.4 %; Eosinophils # (auto) 0.14 K/uL (0-0.5); Eosinophils % (auto) 1.9 %; Hematocrit (blood only) 41.7 % (42-52); Immature Granulocytes # (auto) 0.01 K/uL (0.00-0.02); Immature Granulocytes % (auto) 0.1 %; Lymphocytes # (auto) 3.19 K/uL (1.2-3.4); Lymphocytes % (auto) 42.6 %; Mean Corpuscular Hemoglobin 30.7 pg (25-34); Mean Corpuscular Volume 85.5 fL (80-100); Monocytes # (auto) 0.49 K/uL (0.11-0.59); Monocytes % (auto) 6.6 %; Neutrophils # (auto) 3.62 K/uL (1.4-6.5); Neutrophils % (auto) 48.4 %; Platelet Count 211 K/uL (130-400); RDW Coefficient of Variation 12.8 % (11.5-14.5); RDW Standard Deviation 40.1 fL (36.4-46.3); Red Blood Count 4.88 M/uL (4.7-6.1); White Blood Count 7.48 K/uL (4.8-10.8)
[2019-01-16 04:55] LABS: Albumin Level 3.2 gm/dl (3.4-5.0); BUN Creatinine Ratio 21.6 (10-20); Calcium 8.5 mg/dl (8.5-10.1); Creatinine Clr Calc Pharmacy 132.3 ml/min; Est GFR (African American) 126.3
[2019-01-16 04:58] LABS: Albumin Globulin Ratio 0.9 (0.9-2); Bilirubin,Total 0.7 mg/dl (0.2-1); Globulin 3.7 gm/dl (2.5-4.0); Total Protein 6.9 gm/dl (6.4-8.2)
--- NOTE | 2019-01-16 05:56 | Ultrasound Report ---
US venous doppler LE CLINICAL HISTORY: 38 years-old Male presenting with stroke workup. TECHNIQUE: Real-time grayscale and color and spectral Doppler ultrasound imaging of the veins of the bilateral lower extremities was performed. Compression and augmentation were also utilized. COMPARISON: None. FINDINGS: RIGHT: Common femoral vein: Patent. Greater saphenous vein (superficial): Patent. Deep femoral vein: Patent. Femoral vein: Patent. Popliteal vein: Patent. Calf veins: Patent. LEFT: Common femoral vein: Patent. Greater saphenous vein (superficial): Patent. Deep femoral vein: Patent. Femoral vein: Patent. Popliteal vein: Patent. Calf veins: Patent. Other: None. IMPRESSION: No evidence of deep venous thrombosis. Electronically signed by: Carson De Jesus M.D. 01/16/2019 5:55 AM
[2019-01-16 07:13] LABS: Estimated Average Glucose 226 mg/dl; Hemoglobin A1C 9.5 % (4.5-5.6)
--- NOTE | 2019-01-16 08:49 | Neurology Consultation ---
Date of Consultation January 16, 2019 Assessment & Plan (1) Acute CVA (cerebrovascular accident): (2) Slurred speech: (3) Weakness on right side of face: (4) Type 1 diabetes: (5) Hypertension: (6) Dyslipidemia: (7) Chronic cerebral ischemia: Patient had the acute onset of dysarthria and right facial weakness evening of January 14. By the time he came to the emergency room on January 15 he was out of the window for tPA or other procedure old considerations. Today he continues to have moderate dysarthria and mild left facial weakness along with some tongue deviation to the right. He has no weakness or numbness or other issues in the limbs and has no gait problems, vision problems, or visual loss. He is somewhat improved clinically compared to yesterday. The etiology of this symptoms are acute stroke in the left middle cerebral artery distribution. There are multiple small strokes and the etiology is either ischemic from the left middle cerebral artery, however, emboli cannot be entirely excluded. Although CT angiography of the head and neck were unremarkable, with no vessel stenoses or occlusions, the larger lesions seen on diffusion study suggest more of an ischemic process. Even though he does not have any cardiac problems by history, emboli from the heart or great vessels is still possible. The patient does have chronic cerebral ischemia noted on MRI of a mild, nonspecific, bilateral nature (which is likely secondary to his longstanding diabetes). He does not have any cardiac dysrhythmia or valvular problems but echocardiogram (or TTE) is pending. He has multiple risk factors for stroke including his longstanding diabetes which was not controlled. He also had significant hypertension on admission although this is markedly improved today. Finally he has dyslipidemia which could contribute to stroke or TIA. Recommendations: 1. Agree with clopidogrel 75 mg daily for now. 2. I do not see a need for the addition of aspirin to clopidogrel, but the literature supports the combination for up to a few weeks post event. After this the combination does not prevent strokes or TIAs any better than Plavix alone and may increase bleeding risk. I would use 81 mg aspirin tablet daily if I was going to use the combination. 3. Speech therapy not on to clear him for swallowing but also to help with his dysarthria. 4. The patient is a high dose statin candidate given his parameters and age. 5. The patient needs better glucose control and hopefully his hemoglobin A1c can be at least less than 8. I would suggest and endocrine consultation as an outpatient for a better care plan for his glucose control. 6. The patient would probably benefit from an ophthalmology consult as an outpatient. 7. Waiting echocardiogram/TT 8. PT, OT and increase activity as able. Overall, I spent a total of 110 minutes with this case including review of records, review of MRI films, direct evaluation the patient at bedside, and discussion of the case with the patient at bedside, his RN at bedside, Dr. De Jesus, radiology, and Dr. Sears, including differential diagnosis and treatment options. History of Present Illness Reason for Consultation: Patient is a 38-year-old, who I was asked to see at the request of Dr. Sears, for neurologic consultation regarding stroke Requesting Physician: Dr. Sears Attending Physician: Alyx Sears MD History of Present Illness This patient has a history of insulin dependent diabetes since age 16. He is on an insulin. Tells me that he has some diabetic retinal issues but has not seen an eye doctor in about 2 years. He is followed by his primary care physician Dr. White in [place], [place]. Patient tells me that he has no past history of heart disease, hypertension, asthma, ulcer, or strokes. He is on no other medication. In the evening of January 14, noted that he had some slurred speech and his tongue was not working right". He ignored the advice of his to go to the emergency room and went to bed around 2100. He awoke on January 15 at 0800 and noticed that his slurred speech was worse. Had right facial droop and there was a concern that he was somewhat confused. He resisted going to the hospital then finally agreed later in the morning. EMS found a BSG of 330. He arrived January 15 in the emergency room at 1114, with a temperature 36.8, pulse 78 regular, respiratory rate 18, blood pressure 161/96, and O2 saturation 97%. On exam he was found to right facial weakness, lower face greater than upper face. He had slurred speech and his tongue deviated to the right. He had some leg weakness. CBC was unremarkable. Chem profile shows sodium of 134 and glucose of 367. Rest of the Chem and liver profile were unremarkable. Urinalysis, toxicology screen, and Lyme antibody titers were unremarkable. CT scan of the head showed left periventricular white matter changes 2.6 cm in diameter of undetermined age, possibly acute. CT angiography of the head and neck were unremarkable with no significant stenoses or vascular anomalies. Venous Doppler of the legs showed no evidence of DVT bilaterally. MRI of the brain revealed multiple acute strokes in the left middle cerebral artery distribution mostly frontal. There was mild old small vessel ischemic disease bilaterally also. I reviewed these films. This morning, CBC was unremarkable. Glucose was 153 and later on 125. Hemoglobin A1c was 9.5. Triglycerides 256, total cholesterol 233, LDL 142, and HDL 40 He has been in normal sinus rhythm since admission and is currently in the 70s. Today he feels about the same although his speech may be slightly improved. He denies any weakness or numbness or in the arms or legs and has no pain or headaches. His vision may be slightly blurry at times and his balance is reasonable. He was up walking. Allergies Allergy/AdvReac Type Severity Reaction Status Date / Time No Known Allergies Allergy Unverified 01/15/19 12:07 Home Medications Home Medications Medication Instructions Recorded Confirmed Type insulin lispro 0 unit SUBCUT USEASDIRECTD 01/15/19 01/15/19 History Patient History Medical History Diabetes Surgical History No significant past surgical history S/P trigger finger release Family History Mother Heart disease Father Hypertension Other No pertinent family history Social History Preferred Language: Lao Communication Ability: Effective Category Analyst Required: No Beliefs That Will Affect Care: None marital status: Current Living Situation: Family and Significant Other current occupational status: employed 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 ); no diplopia and no eye pain Ear, Nose, Mouth, Throat: no ear pain, no tinnitus, no hearing loss, no dizziness, no snoring, no hoarseness and no dysphagia Respiratory: no cough and no dyspnea Cardiovascular: no chest pain, no palpitations and no lightheadedness Gastrointestinal: no abdominal pain, no nausea and no vomiting Genitourinary: no dysuria and no urinary incontinence Musculoskeletal: no back pain, no neck pain, no radicular pain, no joint pain and no myalgia Integumentary: no rash and no lesions Neurologic: + abnormal speech; no gait abnormality, no localized weakness, no generalized weakness, no tingling, no numbness, no tremor(s), no abnormal movements, no headache(s), no confusion and no memory loss Psychiatric: no depression, no irritability, no anxiety, no difficulty concentrating, no confusion and no hallucinations Endocrine: no fatigue and no flushing Hematologic / Lymphatic: no easy bleeding and no easy bruising Allergy / Immunological: no urticaria and no problem reported Physical Exam Physical Exam: The patient is left-handed. The patient is awake, alert, and attentive. Speech is moderately dysarthric, with no significant a aphasia. he can name objects, repeat phrases, and has normal spontaneous speech. Mentation and thought processes are intact, with orientation to person, place and time, and normal fund of knowledge. Attention and concentration are normal. Mood and affect are normal and appropriate. G eneral appearance and grooming are normal. Short and long-term memory are intact. The discs are sharp with positive venous pulsations bilaterally. There are no exudates, hemorrhages, or blood vessel changes seen. Pupils are 4 mm bilaterally and reactive to light. Extraocular eye muscles are intact without nystagmus. Visual acuity and visual brown seem normal grossly to confrontation. There are no deficits to sensation in the face in all 3 distributions of the fifth cranial nerve bilaterally. Corneal reflexes are positive bilaterally. There is a slight droop of the corner of the mouth on the right and this does not move well with voluntary smile. Hearing seems normal to whisper and finger rub bilaterally. Palate moves well without asymmetry. There is normal sternocleidomastoid and trapezius (shoulder shrug) strength bilaterally. Tongue is midline with good strength bilaterally. Neck has a full range of motion without discomfort. There are no cervical bruits bilaterally. There are no cranial or ocular bruits. Heart is without murmur. There is a regular rhythm and rate. Cervical, thoracic, and lumbar spine are nontender to palpation. Gait is narrow based, with good arm swing, turns, and stance. Balance is normal eyes open or closed. With outstretched arms there is no drift. There are no resting, postural, or action tremors. There is no ataxia with finger to nose testing. There is good facility in the hands. No other abnormal involuntary movements are noted. Motor strength is 5/5 diffusely in the arms bilaterally including deltoids, biceps, triceps, brachioradialis, wrist flexors and extensors, dope sprayer, and intrinsic hand muscles. Motor strength is 5/5 diffusely in the legs bilaterally including hip flexors, quadriceps, hamstrings, gastrocnemius, tibialis anterior, tibialis posterior, and Peroneii muscles. Toe extensors are normal and there is good bulk in the extensor digitorum brevis muscles bilaterally. The limbs have good tone without rigidity or spasticity. There is no atrophy noted in the muscles. Muscle bulk is normal, there is no tenderness to palpation, no myotonia to percussion, and no fasciculations seen. Sensory examination is intact to touch and pin throughout all 4 limbs diffusely. Reflexes are 1/4 in the biceps, triceps, brachioradialis, quadriceps, and Achilles tendons bilaterally. There is no clonus bilaterally. Toes are downgoing with plantar stimulation bilaterally. Peripheral pulses are present and of normal quality distally in all 4 limbs. There is no peripheral edema noted in the limbs. Results & Data Vital Signs (Past 12 Hours) Vital Signs Temp Pulse Resp BP Pulse Ox 01/16/19 07:34 36.8 C 74 18 127/57 L 97 01/16/19 03:44 36.7 C 81 17 115/64 98 01/15/19 23:47 36.6 C 75 17 107/61 95 Diagnostic Findings Brain MRI WITH AND WITHOUT CONTRAST HISTORY: Facial droop. Slurred speech. Abnormal head CT. TECHNIQUE: Multiplanar multisequence MRI of the brain was performed both before and after the intravenous administration of contrast. COMPARISON STUDY: Head CT 01/15/2019. FINDINGS: Multiple foci restricted diffusion seen within the cortical and white matter of the left frontal lobe. Dominant area within the left periventricular white matter measures 2.8 cm. The majority of the cortical foci of restricted diffusion are subcentimeter. These are consistent with acute infarcts. These are likely within the left MCA territory. Vasogenic edema associated with the left frontal infarction. The midline structures are intact. A few additional scattered punctate foci of T2 hyperintensity seen within the white matter of the supratentorial brain are nonspecific but could represent microvascular ischemic change, a demyelinating disease, or a vasculitis in the appropriate clinical setting. No acute hemorrhage or midline shift. The paranasal sinuses and mastoid air cells are clear. The intravascular flow voids at the skull base are well- maintained. The ventricles are normal in size. 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 Electronically signed by: Luis Bustillo M.D. 01/15/2019 3:38 PM PG Care Time/CCT Total # of Minutes Spent Total Time Spent with Patient: Total time spent is greater than 50% in coordination of care (as documented) at patient's floor/unit and/or counseling patient: (1) Type 1 diabetes Diabetes mellitus complication status: without complication Qualified Code(s): E10.9 - Type 1 diabetes mellitus without complications
[2019-01-16] MEDS ORDERED: ASPIRIN 325 MG ECTAB PO SCH (09:00)
[2019-01-16] MEDS: CLOPIDOGREL BISULFATE 75 MG TAB PO SCH (09:54)
[2019-01-16] MEDS ORDERED: Nursing to Pharmacy Communication ONE (10:01)
[2019-01-16] MEDS ORDERED: INSULIN GLARGINE SOLOSTAR 100 UNITS/ML 3 ML PEN SC ONE ×2 (10:30→21:00)
[2019-01-16] MEDS: ATORVASTATIN 40 MG TAB PO SCH (10:33)
--- NOTE | 2019-01-16 12:15 | Hospitalist Progress Note ---
Date of Service January 16, 2019 Assessment & Plan (1) Transient ischemic attack: Continue to PCU on telemetry Vital signs every 4 hours Neurochecks every 4 hours for 24 hours Aspirin 325 mg daily decreased to 81 daily for 4 weeks Atorvastatin 40 mg daily increased to 80 mg since patient has elevated lipid panel Started fish oil for hypertriglyceridemia N.p.o. now until seen by speech therapy, but family said patient ate on his own and did not have any problem. Diabetic education Endocrine consult Diabetic packet Patient does not know how to use his insulin pump adequately. Echocardiogram: Left ventricular systolic function is normal. No regional wall motion abnormalities noted. Ejection fraction 60 to 65%. The mitral septum is aneurysmal. Injection of contrast documented interatrial shunt. Discussed with cardiology Dr. Dominguez and he said the pt would most likely need further evaluation at [facility] for placement of the IASD. Discussed with telemedicine information clerk automobile club at [facility] and recommended to refer pt to [facility] for PFO closure. MRI of the brain without contrast: Multiple acute left MCA territory infarcts involving the left frontal lobe consistent with embolic infarcts. US lower extremity with venous Doppler to rule out DVT: No evidence of DVT. EKG normal sinus rhythm Monitor CBC daily, A1c 9.5, lipid panel elevated cholesterol and triglycerides , TSH CMP 6 hours for hyperkalemia 5.7-->4.3-->4 DVT prophylaxis Lovenox 40 mg subcu daily Full code (2) Hyperglycemia: Placed consult for endocrinology- DM ty 1.Pt has insulin pump but does not know how to use it. While in the hospital his glycemic control is improving. It is managed by pharmacy. Accuchecks AC and HS. A1c 9.5. (3) Type 1 diabetes: As the above (4) Hyperkalemia: re Subjective Patient seen and examined at the bedside. Resting in the bed comfortably. He still have residual dysarthria, mild left facial weakness along with some tongue deviation to the right. Strength in his both upper extremities he is back to normal as well as lower extremities. Patient is afebrile. Neurochecks no new neuro deficit. Deficits from yesterday some. Appreciate neurology recommendations. Will decrease aspirin to 81 and continue clopidogrel 75 for 1 months. Patient denies fever chills, chest pain shortness of breath abdominal pain frequency urgency syncope near syncope. Review of Systems Review of Systems: All systems reviewed & are unremarkable except as noted in HPI & below Physical Exam Constitutional: WD/WN, vitals as above well developed Eyes: PERRL, conjunctivae normal, anicteric sclerae ENMT: external ear and nose normal, oropharynx normal Neck: trachea midline, no thyromegaly Respiratory: normal respiratory effort, lungs clear to auscultation Cardiovascular: RRR, no murmur, no edema Chest (Breasts): normal inspection/palpation of breasts Gastrointestinal (Abdomen): normal bowel sounds, soft, nontender, no hepatosplenomegaly Musculoskeletal: no cyanosis or clubbing, extremities motor strength 5/5 Skin: no rashes, warm and dry Neurologic: Speech / Cognition: + abnormal speech (slurred speech) Right- sided weakness and loss of sensation Psychiatric: A+Ox3, euthymic affect Lymphatic: no cervical or axillary lymphadenopathy Results & Data Vital Signs (Past 12 Hours) Vital Signs Temp Pulse Pulse Resp BP Pulse Ox 01/16/19 11:25 36.6 C 78 18 146/83 H 98 01/16/19 08:00 65 01/16/19 07:34 36.8 C 74 18 127/57 L 97 01/16/19 03:44 36.7 C 81 17 115/64 98 PG Care Time/CCT Total # of Minutes Spent Total Time Spent with Patient: Total time spent is greater than 50% in coordination of care (as documented) at patient's floor/unit and/or counseling patient: (1) Type 1 diabetes Diabetes mellitus complication status: without complication Qualified Code(s): E10.9 - Type 1 diabetes mellitus without complications
--- NOTE | 2019-01-16 16:41 | Pharmacy Report ---
Pharmacy Glycemic Short Note 2 - Date of Service January 16, 2019 - Glycemic Short BSG Results (Last 24 hours): 01/15/19 01/15/19 01/16/19 16:10 21:46 00:46 Glucose 245 H 82 POC Glucose 73 01/16/19 01/16/19 01/16/19 04:21 06:34 11:18 Glucose 125 H POC Glucose 153 H 306 H* 01/16/19 11:21 Glucose POC Glucose 287 H OUTPATIENT ANTIDIABETIC REGIMEN: * Humalog pump: * 26.8 units of basal insulin per day * Carb ratio: 1 unit per 10 gm CHO * HbA1c: 9.5% (01/16/19) ASSESSMENT: * Mr Sapp is a 38yo diabetic male admitted with a confirmed ischemic stroke. * He uses an insulin pump, however does not follow with an machinist apprentice and does not seem particularly knowledgeable about his pump (this may be secondary to stroke?). * CDE has been consulted and will be a wonderful resource for him. * Patient was initiated on a SQ insulin regimen on admission, which is being adjusted. PLAN FOR INPATIENT GLYCEMIC CONTROL: * Hold insulin pump for now. * Basal insulin * Lantus 25 units SQ daily. * Will add a supplemental dose for tonight in case BSGs are elevated * Bolus insulin * NovoLog per scale ACHS or Q6hrs while NPO * Goal Range: Low 120 mg/dL - High 140 mg/dL * Correction Factor: 30 mg/dL/unit * Nutritional / Prandial insulin per carb ratio of 1 unit per 10 grams CHO consumed PLAN FOR DISCHARGE: * Patient's A1c (9.5%) does not indicate adequately managed BSGs as an outpatient. * Recommend that patient begins to follow with an machinist apprentice after discharg e to better manage glycemic regimen. * If it does not appear that patient will be able to manage an insulin pump, patient may require a SQ insulin regimen?
[2019-01-16] MEDS: ENOXAPARIN INJ 40 MG/0.4 ML SYR SQ SCH (17:19)
[2019-01-16] MEDS: OMEGA-3 (PURIFIED FISH OIL) 1 GM CAP PO SCH (20:53)
[2019-01-17] MEDS: SODIUM CHLORIDE 0.9% 1000ML 1,000 ML IV SCH ×2 (03:33→15:01)
[2019-01-17 06:29] LABS: Basophils # (auto) 0.02 K/uL (0-0.2); Basophils % (auto) 0.4 %; Eosinophils # (auto) 0.12 K/uL (0-0.5); Eosinophils % (auto) 2.3 %; Hematocrit (blood only) 39.8 % (42-52); Hemoglobin 14.1 g/dL (14.0-18.0); Immature Granulocytes # (auto) 0.01 K/uL (0.00-0.02); Immature Granulocytes % (auto) 0.2 %; Lymphocytes # (auto) 2.16 K/uL (1.2-3.4); Lymphocytes % (auto) 42.3 %; Mean Corpuscular Hemoglobin 30.3 pg (25-34); Mean Corpuscular Hgb Conc 35.4 g/dL (32-36); Mean Corpuscular Volume 85.6 fL (80-100); Mean Platelet Volume 10.1 fL (7.4-10.4); Monocytes # (auto) 0.36 K/uL (0.11-0.59); Neutrophils # (auto) 2.44 K/uL (1.4-6.5); Neutrophils % (auto) 47.8 %; Platelet Count 184 K/uL (130-400); RDW Coefficient of Variation 12.7 % (11.5-14.5); RDW Standard Deviation 39.6 fL (36.4-46.3); Red Blood Count 4.65 M/uL (4.7-6.1); White Blood Count 5.11 K/uL (4.8-10.8)
[2019-01-17 07:07] LABS: BUN Creatinine Ratio 20.4 (10-20); Calcium 8.4 mg/dl (8.5-10.1); Est GFR (African American) 123.5; Est GFR (Non-African American) 106.5; Potassium 4.2 mmol/L (3.5-5.1)
[2019-01-17 07:09] LABS: Albumin Globulin Ratio 0.9 (0.9-2); Bilirubin,Total 0.7 mg/dl (0.2-1); Globulin 3.4 gm/dl (2.5-4.0); Total Protein 6.4 gm/dl (6.4-8.2)
[2019-01-17] MEDS: CLOPIDOGREL BISULFATE 75 MG TAB PO SCH (08:15)
[2019-01-17] MEDS: ASPIRIN 81 MG ECTAB PO SCH (08:15)
[2019-01-17] MEDS: ATORVASTATIN 40 MG TAB PO SCH (08:16)
[2019-01-17] MEDS: OMEGA-3 (PURIFIED FISH OIL) 1 GM CAP PO SCH ×2 (08:16→20:18)
[2019-01-17] MEDS: INSULIN ASPART 100 UNITS/ML 3 ML PEN SC SCH ×4 (08:17→21:34)
[2019-01-17] MEDS ORDERED: INSULIN GLARGINE SOLOSTAR 100 UNITS/ML 3 ML PEN SC SCH (09:00)
--- NOTE | 2019-01-17 11:15 | Neurology Progress Note ---
Date of Service January 17, 2019 Assessment & Plan (1) Acute CVA (cerebrovascular accident): (2) Slurred speech: (3) Weakness on right side of face: (4) Type 1 diabetes: (5) Hypertension: (6) Dyslipidemia: (7) Chronic cerebral ischemia: Patient had the acute onset of dysarthria and right facial weakness evening of January 14. By the time he came to the emergency room on January 15 he was out of the window for tPA or other procedure old considerations. Today he continues to have moderate dysarthria and mild left facial weakness along with some tongue deviation to the right. He has no weakness or numbness or other issues in the limbs and has no gait problems, vision problems, or visual loss. He is somewhat improved clinically compared to yesterday and to admission. The etiology of this symptoms are acute stroke in the left middle cerebral artery distribution. There are multiple small strokes and the etiology is either ischemic from the left middle cerebral artery, however, emboli cannot be entirely excluded. Although CT angiography of the head and neck were unremarkable, with no vessel stenoses or occlusions, the larger lesions seen on diffusion study suggest more of an ischemic process. Even though he does not have any cardiac problems by history, emboli from the heart or great vessels is still possible. The patient does have chronic cerebral ischemia noted on MRI of a mild, nonspecific, bilateral nature (which is likely secondary to his longstanding diabetes). He does not have any cardiac dysrhythmia or valvular problems and echocardiogram was unremarkable. He has multiple risk factors for stroke including his longstanding diabetes which was not controlled. He also had significant hypertension on admission although this is markedly improved today. Finally he has dyslipidemia which could contribute to stroke or TIA. Recommendations: 1. Agree with clopidogrel 75 mg daily for now. 2. I do not see a need for the addition of aspirin to clopidogrel, but the literature supports the combination for up to a few weeks post event. After this the combination does not prevent strokes or TIAs any better than Plavix alone and may increase bleeding risk. I would use 81 mg aspirin tablet daily if I was going to use the combination. 3. The patient is a high dose statin candidate given his parameters and age. 4. The patient needs better glucose control and hopefully his hemoglobin A1c can be at least less than 8. I would suggest and endocrine consultation as an outpatient for a better care plan for his glucose control. 5. The patient would probably benefit from an ophthalmology consult as an outpatient. 6. Speech, PT, OT and increase activity as able. Overall, I spent a total of 35 minutes with this case including review of records, review of MRI films, direct evaluation the patient at bedside, and discussion of the case with the patient at bedside, including differential diagnosis and treatment options. Subjective Patient has no complaint of pain or headache. He feels that his speech is getting a little bit better as is his strength. He denies falling or other balance problems and denies incontinence of urine. He admits to having some swallowing issues but does not choke. Additional social history reveals that the patient chews a can of tobacco about once per week. Blood pressure is 136/80. CBC today was unremarkable. Chem profile today revea ls a glucose of 199 and a calcium of 8.4 He has been in normal sinus rhythm. Echocardiogram was largely unremarkable with an ejection fraction of 60-65 percent. There was no shunt noted with injection of contrast material. Physical Exam Physical Exam: Patient was awake and alert. Speech had some dysarthria and he had some trouble at times following directions or commands, although most of the time he was pretty good. Mood was reasonable and affect was flat. He was pleasant and cooperative otherwise. Extraocular eye muscles are intact without nystagmus. There was some asymmetry at the corner of the mouth on the right and this did not move quite as well with smile as the left side. This is the same as yesterday. Tongue deviates to the right as per yesterday. Gait is normal as is coordination of his arms. There are no abnormal involuntary movements. Strength is 5/5 in all major muscle gr oups in arms and legs both proximally distally bilaterally except for some 4+/5 strength in the right hip flexor. Results & Data Vital Signs (Past 12 Hours) Vital Signs Temp Pulse Resp BP Pulse Ox 01/17/19 07:20 36.7 C 68 19 136/80 98 01/17/19 03:49 36.6 C 66 15 107/68 98 01/16/19 23:30 36.6 C 71 16 118/73 97 PG Care Time/CCT Total # of Minutes Spent Total Time Spent with Patient: Total time spent is greater than 50% in coordination of care (as documented) at patient's floor/unit and/or counseling patient: (1) Type 1 diabetes Diabetes mellitus complication status: without complication Qualified Code(s): E10.9 - Type 1 diabetes mellitus without complications
--- NOTE | 2019-01-17 13:08 | Pharmacy Report ---
Pharmacy Glycemic Short Note 2 - Date of Service January 17, 2019 - Glycemic Short BSG Results (Last 24 hours): 01/16/19 01/16/19 01/17/19 16:43 20:13 06:18 Glucose 199 H POC Glucose 88 94 01/17/19 01/17/19 07:19 11:39 Glucose POC Glucose 224 H 150 H OUTPATIENT ANTIDIABETIC REGIMEN: * Humalog pump: * 26.8 units of basal insulin per day * Carb ratio: 1 unit per 10 gm CHO * HbA1c: 9.5% (01/16/19) ASSESSMENT: 01/17: * Mr. Sapp's fasting glucose elevated this morning, will increase to 27 units (~home dose) * Corrected well with current novolog parameters- will continue for now 01/16 * Mr Sapp is a 38yo diabetic male admitted with a confirmed ischemic stroke. * He uses an insulin pump, however does not follow with an fitness supervisor and does not seem particularly knowledgeable about his pump (this may be secondary to stroke?). * CDE has been consulted and will be a wonderful resource for him. * Patient was initiated on a SQ insulin regimen on admission, which is being adjusted. PLAN FOR INPATIENT GLYCEMIC CONTROL: * Hold insulin pump for now. * Basal insulin * Lantus 27 units SQ daily. * Bolus insulin * NovoLog per scale ACHS or Q6hrs while NPO * Goal Range: Low 120 mg/dL - High 140 mg/dL * Correction Factor: 30 mg/dL/unit * Nutritional / Prandial insulin per carb ratio of 1 unit per 10 grams CHO consumed PLAN FOR DISCHARGE: * Patient's A1c (9.5%) does not indicate adequately managed BSGs as an outpatient. * Recommend that patient begins to follow with an fitness supervisor after discharge to better manage glycemic regimen. * If it does not appear that patient will be able to manage an insulin pump, patient may require a SQ insulin regimen?
[2019-01-17] MEDS: ENOXAPARIN INJ 40 MG/0.4 ML SYR SQ SCH (17:14)
--- NOTE | 2019-01-17 18:40 | Hospitalist Progress Note ---
Date of Service January 17, 2019 Assessment & Plan (1) Transient ischemic attack: Acute embolic stroke Continue surveillance monitor Continue neuro check Neurology consult appreciated, continue Plavix plus aspirin for 4 weeks, then will be on Plavix alone Lipitor was increased from 40 mg p.o. daily to 80 mg p.o. daily Continue fish oil CT angiogram head and neck was within normal limits 2D echo was within normal limits except for right to left shunt We will communicate with tile ditcher Dr. Dominguez regarding the clarity of the echo, otherwise can do transesophageal echo to completely rule out any mural thrombus. Spoke with patient and his family, patient recently [facility] [place] if he has a DVT that went through the right to left cardiac shunt, will order ultrasound lower extremity Referral for cardiothoracic for shunt closure as an outpatient Continue to PCU on telemetry Vital signs every 4 hours Neurochecks every 4 hours for 24 hours Aspirin 325 mg daily decreased to 81 daily for 4 weeks Atorvastatin 40 mg daily increased to 80 mg since patient has elevated lipid panel Started fish oil for hypertriglyceridemia Cleared to start oral diet by speech therapy Diabetic education, recommended initiating insulin pump at least 12 hours prior to discharge Endocrine consult Results are attached below Echocardiogram: Left ventricular systolic function is normal. No regional wall motion abnormalities noted. Ejection fraction 60 to 65%. The mitral septum is aneurysmal. Injection of contrast documented interatrial shunt. Discussed with cardiology Dr. Dominguez and he said the pt would most likely need further evaluation at [facility] for placement of the IASD. Discussed with telemedicine dry wall installations mechanic at [facility] and recommended to refer pt to [facility] for PFO closure. MRI of the brain without contrast: Multiple acute left MCA territory infarcts in volving the left frontal lobe consistent with embolic infarcts. US lower extremity with venous Doppler to rule out DVT: No evidence of DVT. EKG normal sinus rhythm Monitor CBC daily, A1c 9.5, lipid panel elevated cholesterol and triglycerides , TSH CMP 6 hours for hyperkalemia 5.7-->4.3-->4 DVT prophylaxis Lovenox 40 mg subcu daily Full code (2) Hyperglycemia: As mentioned above hemoglobin A1c is 9.5 Diabetes education consult appreciated, will initiate insulin pump prior to discharge. (3) Type 1 diabetes: As the above (4) Hyperkalemia: re (5) Dyslipidemia: Lipitor was increased from 40 mg p.o. daily to 80 mg p.o. daily (6) Acute ischemic stroke: As above (7) Weakness on right side of face: (8) Slurred speech: Subjective Laying down comfortable, not in acute distress Able to answer question his slurred speech appears to be improved but not completely resolved. Denies chest pain or shortness of Review of Systems Review of Systems: Review of system Constitutional: No fever / no chills / no sweats / no weakness / no fatigue Eyes: no blurring of vision / no eye pain / no discharge / no redness ENT: no hearing loss / no epistaxis /no swallowing problems Respiratory: no cough / no wheezing / no SOB / no hemoptysis Cardiovascular: no Chest pain / no lower extremity edema / no palpitation Abdomen: no pain / no nausea / no vomiting / no constipation Musculoskeletal: no joint pain / no muscle pain / no joint swelling Genitourinary: no dysuria / no incontinence / no urinary retention Neurologic: no focal weakness / no numbness/tingling / no ataxia Psychiatric: no depression symptoms / no anxiety / no insomnia Endocrine: no excessive thirst / no excessive urination Hematologic: no abnormal bleeding / no bruising / no LN swelling Skin: No rash / no pallor Physical Exam Physical Exam: Physical examination General patient appears to be comfortable, not in acute distress HEENT: Atraumatic , normocephalic /no jaundice /no pallor /anicteric /no dry mucous membrane /normal external ear inspection Neck: Supple /no swelling /central trach Heart: S1/S2 normal/regular rate and rhythm/no gallop /no rub /no murmur Lungs: Clear to auscultation bilaterally/normal chest with expansion/no rhonchi/no rales/no wheezing/no use of accessory muscles of respiration Abdomen: Soft/nontender/no guarding/no rebound/no organomegaly/no pulsatile mass Musculoskeletal: No swelling/no edema/no tenderness/normal range of motion Neuro exam: Awake alert oriented 3/cranial nerves II through XII appear to be intact except for minimal right facial droop, and slurred speech, sensation intact/moves all extremities/no abnormal movements Psychiatric evaluation: No depressed mood/normal affect Skin: No rash on exposed skin area/no erythema Extremity: Normal pulse/no pitting edema/no clubbing or cyanosis Endocrine/lymphatic: No obvious lymphadenopathy /no lymphedema Results & Data Vital Signs (Past 12 Hours) Vital Signs Temp Pulse Pulse Resp BP Pulse Ox 01/17/19 11:44 69 01/17/19 07:20 36.7 C 68 19 136/80 98 PG Care Time/CCT Total # of Minutes Spent Total Time Spent with Patient: Total time spent is greater than 50% in coordination of care (as documented) at patient's floor/unit and/or counseling patient: (1) Type 1 diabetes Diabetes mellitus complication status: without complication Qualified Code(s): E10.9 - Type 1 diabetes mellitus without complications
[2019-01-18] MEDS: SODIUM CHLORIDE 0.9% 1000ML 1,000 ML IV SCH ×2 (03:43→17:03)
[2019-01-18 05:47] LABS: Basophils # (auto) 0.02 K/uL (0-0.2); Basophils % (auto) 0.4 %; Eosinophils # (auto) 0.12 K/uL (0-0.5); Eosinophils % (auto) 2.5 %; Hematocrit (blood only) 39.1 % (42-52); Hemoglobin 13.9 g/dL (14.0-18.0); Immature Granulocytes # (auto) 0.01 K/uL (0.00-0.02); Immature Granulocytes % (auto) 0.2 %; Lymphocytes # (auto) 2.13 K/uL (1.2-3.4); Lymphocytes % (auto) 43.7 %; Mean Corpuscular Hemoglobin 30.2 pg (25-34); Mean Corpuscular Hgb Conc 35.5 g/dL (32-36); Mean Corpuscular Volume 84.8 fL (80-100); Monocytes # (auto) 0.43 K/uL (0.11-0.59); Monocytes % (auto) 8.8 %; Neutrophils # (auto) 2.16 K/uL (1.4-6.5); Neutrophils % (auto) 44.4 %; Platelet Count 182 K/uL (130-400); RDW Coefficient of Variation 12.6 % (11.5-14.5); Red Blood Count 4.61 M/uL (4.7-6.1); White Blood Count 4.87 K/uL (4.8-10.8)
[2019-01-18 06:18] LABS: BUN Creatinine Ratio 17.3 (10-20); Calcium 8.2 mg/dl (8.5-10.1); Creatinine Clr Calc Pharmacy 150.9 ml/min; Est GFR (African American) 134.9; Est GFR (Non-African American) 116.4
[2019-01-18 06:21] LABS: Albumin Globulin Ratio 0.9 (0.9-2); Bilirubin,Total 0.7 mg/dl (0.2-1); Globulin 3.4 gm/dl (2.5-4.0); Total Protein 6.4 gm/dl (6.4-8.2)
[2019-01-18] MEDS ORDERED: INSULIN GLARGINE SOLOSTAR 100 UNITS/ML 3 ML PEN SC SCH (09:00)
[2019-01-18] MEDS: INSULIN ASPART 100 UNITS/ML 3 ML PEN SC SCH ×3 (09:11→18:11)
[2019-01-18] MEDS: ATORVASTATIN 40 MG TAB PO SCH (09:11)
[2019-01-18] MEDS: ASPIRIN 81 MG ECTAB PO SCH (09:11)
[2019-01-18] MEDS: OMEGA-3 (PURIFIED FISH OIL) 1 GM CAP PO SCH ×2 (09:11→21:46)
[2019-01-18] MEDS: CLOPIDOGREL BISULFATE 75 MG TAB PO SCH (09:11)
[2019-01-18] MEDS ORDERED: NovoLIN-N (NPH) PER UNIT CHARGE SQ ONE (09:15)
[2019-01-18] MEDS ORDERED: PHARMACIST DISCHARGE MED REC CONSULT PRN (13:56)
--- NOTE | 2019-01-18 15:18 | Pharmacy Report ---
Pharmacy Glycemic Short Note 2 - Date of Service January 18, 2019 - Glycemic Short BSG Results (Last 24 hours): 01/17/19 01/17/19 01/17/19 16:20 20:06 20:07 Glucose POC Glucose 128 H 53 L* 56 L* 01/17/19 01/17/19 01/17/19 20:26 20:28 20:50 Glucose POC Glucose 56 L* 69 L* 105 H 01/18/19 01/18/19 01/18/19 05:33 07:14 11:23 Glucose 162 H POC Glucose 145 H 191 H OUTPATIENT ANTIDIABETIC REGIMEN: * Humalog pump: * 26.8 units of basal insulin per day * Carb ratio: 1 unit per 10 gm CHO * HbA1c: 9.5% (01/16/19) ASSESSMENT: 01/18 * Mr. Sapp's fasting this morning adequate 145. * Patient did have hypoglycemic event last night after dinner, otherwise BSGs adequate. * Did discuss with patient restarting insulin pump this morning and patient would like to restart pump. Unfortunately when going to insert infusion set, patient dropped it on floor and would not be able to insert, did not have back up with him. His girlfriend was going to bring in additional set. * Gave 12 units of NPH this morning in anticipation of restarting pump later this afternoon, will give additional 12 unit dose if not able to be supplied * Discussed with hospitalist, patient may go home this evening if insulin pump transition successful, graduate assistant to assist with transition. * When speaking with patient this morning he did have some confusion about his carb ratio vs. correction factor, but was able to repeat correct back after some redirection. He would very much like to keep insulin pump. Does know how to bolus- issue would be with calculating dose, which would be an issue with injections as well. Per graduate assistant girlfriend is also able to help with dosing, may need to transition to set doses if not able to calculate. Patient should have close follow-up with provider. 01/17: * Mr. Sapp's fasting glucose elevated this morning, will increase to 27 units (~home dose) * Corrected well with current novolog parameters- will continue for now 01/16 * Mr Sapp is a 38yo diabetic male admitted with a confirmed ischemic stroke. * He uses an insulin pump, however does not follow with an derrick worker well service and does not seem particularly knowledgeable about his pump (this may be secondary to stroke?). * CDE has been consulted and will be a wonderful resource for him. * Patient was initiated on a SQ insulin regimen on admission, which is being adjusted. PLAN FOR INPATIENT GLYCEMIC CONTROL: * Hold insulin pump for now. * Basal insulin * Lantus 12 units NPH x 1, restart insulin pump when able. Additional 12 units of NPH at dinner if not able to start insulin pump today. * Bolus insulin * NovoLog per scale ACHS or Q6hrs while NPO * Goal Range: Low 120 mg/dL - High 140 mg/dL * Correction Factor: 30 mg/dL/unit * Nutritional / Prandial insulin per carb ratio of 1 unit per 10 grams CHO consumed PLAN FOR DISCHARGE: * Patient's A1c (9.5%) does not indicate adequately managed BSGs as an outpatient. * Recommend that patient begins to follow with an derrick worker well service after discharge to better manage glycemic regimen. * If it does not appear that patient will be able to manage an insulin pump, patient may require a SQ insulin regimen?
[2019-01-18] MEDS ORDERED: INSULIN HUMAN LISPRO (humaLOG) 100 UNITS/ML VIAL SC PRN (15:45)
[2019-01-18] MEDS: ENOXAPARIN INJ 40 MG/0.4 ML SYR SQ SCH (17:54)
--- NOTE | 2019-01-18 19:09 | Hospitalist Progress Note ---
Date of Service January 18, 2019 Assessment & Plan (1) Transient ischemic attack: Acute embolic stroke Continue director of cardiac cath lab Continue neuro check Neurology consult appreciated, initially was asked on aspirin and Plavix, due to the PFO that was detected on the 2D echo, stopped both aspirin and Plavix, and started him on Eliquis starting from tomorrow morning, discussed with Dr. Cano who agreed with the plan, discussed with patient and his family who agreed with the plan Lipitor was increased from 40 mg p.o. daily to 80 mg p.o. daily Continue fish oil CT angiogram head and neck was within normal limits 2D echo was within normal limits except for right to left shunt Spoke with patient and his family, patient recently went to [place], wonder if he has a DVT that went through the right to left cardiac shunt, ultrasound lower extremity was negative but does not rule out presence of previously Referral for cardiothoracic for shunt closure as an outpatient Continue to PCU on telemetry Vital signs every 4 hours Neurochecks every 4 hours for 24 hours Aspirin 325 mg daily decreased to 81 daily for 4 weeks Atorvastatin 40 mg daily increased to 80 mg since patient has elevated lipid panel Started fish oil for hypertriglyceridemia Cleared to start oral diet by speech therapy Diabetic education, recommended initiating insulin pump at least 12 hours prior to discharge Endocrine consult Results are attached below Echocardiogram: Left ventricular systolic function is normal. No regional wall motion abnormalities noted. Ejection fraction 60 to 65%. The mitral septum is aneurysmal. Injection of contrast documented interatrial shunt. Discussed with cardiology Dr. Dominguez and he said the pt would most likely need further evaluation at [facility] for placement of the IASD. Discussed with telemedicine communication specialist at [facility] and recommended to refer pt to [facility] for PFO closure. MRI of the brain without contrast: Multiple acute left MCA territory infarcts involving the left frontal lobe consistent with embolic infarcts. US lower extremity with venous Doppler to rule out DVT: No evidence of DVT. EKG normal sinus rhythm Monitor CBC daily, A1c 9.5, lipid panel elevated cholesterol and triglycerides , TSH CMP 6 hours for hyperkalemia 5.7-->4.3-->4 DVT prophylaxis Lovenox 40 mg subcu daily Full code (2) Hyperglycemia: As mentioned above hemoglobin A1c is 9.5 Diabetes education consult appreciated, Pharmacy consult appreciated, started insulin pump prior to discharge. (3) Type 1 diabetes: As the above (4) Hyperkalemia: Replaced (5) Dyslipidemia: Lipitor was increased from 40 mg p.o. daily to 80 mg p.o. daily (6) Acute ischemic stroke: As above (7) Weakness on right side of face: (8) Slurred speech: Subjective Feeling better, still have significant slurred speech but able to answer all questions appropriately and follow commands appropriate Review of Systems Review of Systems: Review of system Constitutional: No fever / no chills / no sweats / no weakness / no fatigue Eyes: no blurring of vision / no eye pain / no discharge / no redness ENT: no hearing loss / no epistaxis /no swallowing problems Respiratory: no cough / no wheezing / no SOB / no hemoptysis Cardiovascular: no Chest pain / no lower extremity edema / no palpitation Abdomen: no pain / no nausea / no vomiting / no constipation Musculoskeletal: no joint pain / no muscle pain / no joint swelling Genitourinary: no dysuria / no incontinence / no urinary retention Neurologic: Slurred speech, but no focal weakness / no numbness/tingling / no ataxia Psychiatric: no depression symptoms / no anxiety / no insomnia Endocrine: no excessive thirst / no excessive urination Hematologic: no abnormal bleeding / no bruising / no LN swelling Skin: No rash / no pallor Physical Exam Physical Exam: Physical examination General patient appears to be comfortable, not in acute distress HEENT: Atraumatic , normocephalic /no jaundice /no pallor /anicteric /no dry mucous membrane /normal external ear inspection Neck: Supple /no swelling /central trach Heart: S1/S2 normal/regular rate and rhythm/no gallop /no rub /no murmur Lungs: Clear to auscultation bilaterally/normal chest with expansion/no rhonchi/no rales/no wheezing/no use of accessory muscles of respiration Abdomen: Soft/nontender/no guarding/no rebound/no organomegaly/no pulsatile mass Musculoskeletal: No swelling/no edema/no tenderness/normal range of motion Neuro exam: Only slurred speech, otherwise awake alert oriented 3/cranial nerves II through XII appear to be intact/sensation intact/moves all extremities/no abnormal movements Psychiatric evaluation: No depressed mood/normal affect Skin: No rash on exposed skin area/no erythema Extremity: Normal pulse/no pitting edema/no clubbing or cyanosis Endocrine/lymphatic: No obvious lymphadenopathy /no lymphedema Results & Data Vital Signs (Past 12 Hours) Vital Signs Temp Pulse Pulse Resp BP Pulse Ox 01/18/19 16:00 76 01/18/19 15:43 36.8 C 76 20 130/80 98 01/18/19 11:45 36.7 C 75 16 130/80 98 01/18/19 08:00 70 PG Care Time/CCT Total # of Minutes Spent Total Time Spent with Patient: 35 Total time spent is greater than 50% in coordination of care (as documented) at patient's floor/unit and/or counseling patient: (1) Type 1 diabetes Diabetes mellitus complication status: without complication Qualified Code(s): E10.9 - Type 1 diabetes mellitus without complications
[2019-01-18] MEDS: CARBOHYDRATES FOR HYPOGLYCEMIA PO PRN (20:05)
[2019-01-19] MEDS: SODIUM CHLORIDE 0.9% 1000ML 1,000 ML IV SCH (03:37)
[2019-01-19] MEDS: CARBOHYDRATES FOR HYPOGLYCEMIA PO PRN ×2 (04:05→04:22)
[2019-01-19 06:34] LABS: Basophils # (auto) 0.01 K/uL (0-0.2); Basophils % (auto) 0.2 %; Eosinophils # (auto) 0.13 K/uL (0-0.5); Eosinophils % (auto) 2.5 %; Hematocrit (blood only) 37.8 % (42-52); Hemoglobin 13.8 g/dL (14.0-18.0); Immature Granulocytes # (auto) 0.01 K/uL (0.00-0.02); Immature Granulocytes % (auto) 0.2 %; Lymphocytes # (auto) 1.74 K/uL (1.2-3.4); Lymphocytes % (auto) 33.1 %; Mean Corpuscular Hemoglobin 31.2 pg (25-34); Mean Corpuscular Hgb Conc 36.5 g/dL (32-36); Mean Corpuscular Volume 85.5 fL (80-100); Mean Platelet Volume 10.1 fL (7.4-10.4); Monocytes # (auto) 0.52 K/uL (0.11-0.59); Monocytes % (auto) 9.9 %; Neutrophils # (auto) 2.84 K/uL (1.4-6.5); Neutrophils % (auto) 54.1 %; Platelet Count 185 K/uL (130-400); RDW Coefficient of Variation 12.6 % (11.5-14.5); RDW Standard Deviation 39.7 fL (36.4-46.3); Red Blood Count 4.42 M/uL (4.7-6.1); White Blood Count 5.25 K/uL (4.8-10.8)
[2019-01-19 07:11] LABS: Albumin Level 3.2 gm/dl (3.4-5.0); BUN Creatinine Ratio 14.5 (10-20); Calcium 8.4 mg/dl (8.5-10.1); Creatinine Clr Calc Pharmacy 134.8 ml/min; Est GFR (African American) 128.7; Est GFR (Non-African American) 111.1; Magnesium 2.2 mg/dl (1.8-2.4); Potassium 3.7 mmol/L (3.5-5.1)
[2019-01-19 07:14] LABS: Albumin Globulin Ratio 0.9 (0.9-2); Bilirubin,Total 0.5 mg/dl (0.2-1); Globulin 3.5 gm/dl (2.5-4.0); Total Protein 6.7 gm/dl (6.4-8.2)
[2019-01-19] MEDS: APIXABAN 5 MG TABLET PO SCH ×2 (08:11→10:40)
[2019-01-19] MEDS: ATORVASTATIN 40 MG TAB PO SCH (08:14)
[2019-01-19] MEDS: OMEGA-3 (PURIFIED FISH OIL) 1 GM CAP PO SCH (08:14)
--- NOTE | 2019-01-19 10:20 | Pharmacy Report ---
Pharmacy Glycemic Short Note 2 - Date of Service January 19, 2019 - Glycemic Short BSG Results (Last 24 hours): 01/18/19 01/18/19 01/18/19 11:23 16:06 20:02 Glucose POC Glucose 191 H 132 H 67 L* 01/18/19 01/19/19 01/19/19 20:21 00:22 04:05 Glucose POC Glucose 87 91 56 L* 01/19/19 01/19/19 01/19/19 04:22 04:39 06:19 Glucose 217 H POC Glucose 65 L* 102 H 01/19/19 07:48 Glucose POC Glucose 298 H OUTPATIENT ANTIDIABETIC REGIMEN: * Humalog pump: * 26.8 units of basal insulin per day * Carb ratio: 1 unit per 10 gm CHO * HbA1c: 9.5% (01/16/19) ASSESSMENT: 01/19 * Insulin pump restarted yesterday per recommendations of religious educator * Patient did experience hypoglycemia last evening and during the night last night and has now rebounded into the 200s this AM * Patient's pump site is patent per hat stock laminating machine operator, RN had also f/u with patient to ensure he had not suspended his basal rate. RN confirmed that basal rate is still on and running at 1.1 units/hr * Plan to follow pt's self-management again today. * For BSG elevations this AM, pt was instructed to treat per his usual but we will be checking BSGs more frequently to ensure that there is not an issue with his current pump site. 01/18 * Mr. Sapp's fasting this morning adequate 145. * Patient did have hypoglycemic event last night after dinner, otherwise BSGs ad equate. * Did discuss with patient restarting insulin pump this morning and patient would like to restart pump. Unfortunately when going to insert infusion set, patient dropped it on floor and would not be able to insert, did not have back up with him. His girlfriend was going to bring in additional set. * Gave 12 units of NPH this morning in anticipation of restarting pump later this afternoon, will give additional 12 unit dose if not able to be supplied * Discussed with hospitalist, patient may go home this evening if insulin pump transition successful, religious educator to assist with transition. * When speaking with patient this morning he did have some confusion about his carb ratio vs. correction factor, but was able to repeat correct back after some redirection. He would very much like to keep insulin pump. Does know how to bolus- issue would be with calculating dose, which would be an issue with injections as well. Per religious educator girlfriend is also able to help with dosing, may need to transition to set doses if not able to calculate. Patient should have close follow-up with provider. 01/17: * Mr. Sapp's fasting glucose elevated this morning, will increase to 27 units (~home dose) * Corrected well with current novolog parameters- will continue for now 01/16 * Mr Sapp is a 38yo diabetic male admitted with a confirmed ischemic stroke. * He uses an insulin pump, however does not follow with an fax machine repairer and does not seem particularly knowledgeable about his pump (this may be secondary to stroke?). * CDE has been consulted and will be a wonderful resource for him. * Patient was initiated on a SQ insulin regimen on admission, which is being adjusted. PLAN FOR INPATIENT GLYCEMIC CONTROL: * Continue Insulin Pump - patient to self manage * Check BSGs more frequently this AM to ensure his BSG in not climbing due to a bad pump site PLAN FOR DISCHARGE: * Patient's A1c (9.5%) does not indicate adequately managed BSGs as an outpatient. * Recommend that patient begins to follow with an fax machine repairer after dis charge to better manage glycemic regimen. * If it does not appear that patient will be able to manage an insulin pump, patient may require a SQ insulin regimen on discharge
[2019-01-19] MEDS ORDERED: STROKE PATIENT DISCHARGE STA (14:13)
--- NOTE | 2019-01-19 14:20 | Discharge Summary ---
Date of Service January 19, 2019 Admission HPI Per Admitting Provider Aki patient is a 38 years old male with past medical history of type 1 diabetes as his only issue poorly controlled who was brought by the ambulance to the emergency room with a complaint of right side face droop slowed speech weakness in his right arm. Patient blood sugar admission was 422 which improved with IV insulin and Lantus. Per history patient felt that his tongue was swollen last night around 6 PM had to dinner and went to sleep. During the day he was celebrating his children's birthday. Before he went to sleep his told him that he should go to the emergency room which patient refused. In the morning patient woke up at 7 and continued to feel that his speech is slurred and he did not feel the right side of his face as well as he had some weakness in his right arm. At that time he decided to call EMS. In the ER telemetry stroke was called and Dr. Martell neurologist from [facility] recommended to do a work- up for stroke and not to give TPA since patient was out of the window. She recommended aspirin 325, atorvastatin average dose until lipid panel is available , improving glycemic control, neurochecks every 4 hours for 24 hours, telemetry admission, echocardiogram, rule out DVT, keep n.p.o. until patient passes swallow study, MRI of the brain. Revisiting patient again and discussing CTA of the head and neck it became more clear that patient does not have acute stroke and that similar occasion happened 10 years ago when patient fell from the stairs had slurred speech, he was taken to the emergency room but it was not suspected a stroke. The case was discussed with radiology Dr. Luis Bustillo who read the CTA of the head and neck and he stated that he believes that hypodensity within the left periventricular right white matter of 2.6 cm appears to be old or chronic stroke rather than new one. Labs were reviewed: White blood cell 5.6, red blood cells 5.3 hemoglobin 15.3 hematocrit 46.3 platelets 250. PT 9.9, INR 1, APTT 25.5. Sodium 133, potassium 5.7 chloride 95, BUN 23, creatinine 1.05, GFR 89.6, initial glucose 367, repeated 422, after IV insulin 188. AST 14, ALT 23, alkaline phosphatase 93, troponin I 0.015 Albumin 3.9. BNP pending TSH pending lipid panel pending, A1c pending. CTA of the head: No significant stenosis, occlusion or aneurysm within the [place]. No significant stenosis, occlusion or dissection identified within the carotid or vertebral arteries. Hypodensities in the left periventricular white matter is better appreciated on the CT of the head. CT of the head without contrast: Focal hypodensity within the left periventricular white matter which measures approximately 2.6 cm. This appears to represent encephalomalacia from subacute to chronic infarct. MRI brain pending. Decision was made to admit patient to the PCU on telemetry for transient ischemic attack and hyperglycemia. Principal Diagnosis Acute embolic stroke with residual dysarthria Intra-atrial shunt/likely PFO Diabetes mellitus type 1/uncontrolled blood sugar Dyslipidemia Discharge Exam Physical examination General patient appears to be comfortable, not in acute distress HEENT: Atraumatic , normocephalic /no jaundice /no pallor /anicteric /no dry mucous membrane /normal external ear inspection Neck: Supple /no swelling /central trach Heart: S1/S2 normal/regular rate and rhythm/no gallop /no rub /no murmur Lungs: Clear to auscultation bilaterally/normal chest with expansion/no rhonchi/no rales/no wheezing/no use of accessory muscles of respiration Abdomen: Soft/nontender/no guarding/no rebound/no organomegaly/no pulsatile mass Musculoskeletal: No swelling/no edema/no tenderness/normal range of motion Neuro exam: Severe dysarthria, awake alert oriented 3/cranial nerves II through XII appear to be intact/sensation intact/moves all extremities/no abnormal movements Psychiatric evaluation: No depressed mood/normal affect Skin: No rash on exposed skin area/no erythema Extremity: Normal pulse/no pitting edema/no clubbing or cyanosis Endocrine/lymphatic: No obvious lymphadenopathy /no lymphedema Discharge Data Allergies Allergy/AdvReac Type Severity Reaction Status Date / Time No Known Allergies Allergy Unverified 01/15/19 12:07 Consultations 01/15/19 11:49 ED Decision to Admit Stat 01/15/19 15:50 Consult Case Management - Discharge Planning Routine Consult Neurology Routine 01/16/19 18:27 Consult Endocrinology Routine Ordered Studies 01/15/19 10:46 CT angio head w con Stat CT angio neck with con Stat CT head/brain wo con Stat 01/15/19 14:08 MR brain w con Stat 01/15/19 23:19 US venous doppler LE BI Stat Hospital Course (1) Transient ischemic attack: Acute embolic stroke Patient was admitted to telemetry, had neuro checks every 4 hours, MRI of the brain showed multiple acute left MCA territory infarct involving left frontal lobe consistent with embolic infarcts Neurology consult appreciated, initially was placed on aspirin and Plavix, 2D echo was obtained and showed right to left intra-atrial shunt. Due to the PFO , stopped both aspirin and Plavix, and started him on Eliquis discussed with Dr. Cano who agreed with the plan, discussed with patient and his family who agreed with the plan Lipitor was increased from 40 mg p.o. daily to 80 mg p.o. daily Stopped fish oil due to starting Eliquis CT angiogram head and neck was within normal limits 2D echo was within normal limits except for right to left shunt Referral for cardiothoracic for shunt closure as an outpatient Referral to outpatient speech therapy Spoke with patient and his family, patient recently went to [place], wonder if he has a DVT that went through the right to left cardiac shunt, ultrasound lower extremity was negative but does not rule out presence of previously Results echo and imaging are attached below Echocardiogram: Left ventricular systolic function is normal. No regional wall motion abnormalities noted. Ejection fraction 60 to 65%. The mitral septum is aneurysmal. Injection of contrast documented interatrial shunt. Discussed with cardiology Dr. Dominguez and he said the pt would most likely need further evaluation at [facility] for placement of the IASD. Discussed with telemedicine professional athletes coach at [facility] and recommended to refer pt to [facility] for PFO closure. MRI of the brain without contrast: Multiple acute left MCA territory infarcts involving the left frontal lobe consistent with embolic infarcts. US lower extremity with venous Doppler to rule out DVT: No evidence of DVT. EKG normal sinus rhythm (2) Hyperglycemia: As mentioned above hemoglobin A1c is 9.5 Diabetes education consult appreciated, recommended initiating insulin pump Patient needs to follow-up with missile facilities repairer as an outpatient (3) Type 1 diabetes: As the above (4) Hyperkalemia: Replaced (5) Dyslipidemia: Lipitor was increased from 40 mg p.o. daily to 80 mg p.o. daily (6) Acute ischemic stroke: As above (7) Weakness on right side of face: (8) Slurred speech: Total Time Total Time Spent Total Time Spent (In Minutes): 35 minutes total time spent is greater than 50% in coordination of care (as documented) at patient's floor/unit and/or counseling patient/family discussion of care with nursing staff Discharge Plan Discharge Items Patient Disposition: Home - Self-Care Reason For Visit: SLURRED SPEECH,HYPERGLYCEMIA Discharge Diagnosis: Acute embolic stroke with residual dysarthria Intra-atrial shunt/likely PFO Diabetes mellitus type 1/uncontrolled blood sugar Dyslipidemia Discharge Goals: Decrease discomfort and Improve disease control Activity: Resume your previous activity Lifting: Gradually increase as tolerated Bathing: No limitations Sexual Activity: After one week Exercise/Sports: Gradually increase as tolerated Driving/Machine Use: No limitations Weightbearing: Full weightbearing Non-emergency contact: Primary Care Provider, Specialist and Neurologist Call non-emergency contact if: you have any medication questions and your symptoms worsen Follow-up/Referrals: [facility] [place] [facility] [Provider Group] - 02/03/19 10:00 am (Please, follow up at [facility] End[facility] Office with Jason Garcia PA-C on WednesdayFebruary 03 at 10:00 am. The office is located in [address] of [facility]. This is the big building [facility]. If you have any questions, call the office at [phone].) Fan Richter [Primary Care Provider] - 01/24/19 2:00 pm (Please, follow up with Dr. Fan Richter in [place] on WednesdayJanuary 24 at 2:00 pm. *If you need to change this appointment, call the office at [phone].) Diet: Carb Count or DM1 Addtl Provider Instructions: Follow-up with speech therapy as an outpatient Since you have been started on Eliquis/blood thinner do not take any eksz-dri-tuncijz pain medicine except Tylenol. All other klac-xxa-vohjgjc pain medications like Motrin/ibuprofen/Aleve/naproxen do interact with the Eliquis If Tylenol is not enough please let your primary care physician know and he will prescribe another medicine for you. Follow-up with cardiothoracic surgeon as an outpatient for closure of your intra-atrial shunt Prescriptions: New atorvastatin 40 mg Tablet 80 mg PO QAM Qty: 30 RF: 0 Eliquis 5 mg Tablet 5 mg PO BID Qty: 60 RF: 3 Continued insulin lispro 100 unit/mL Solution SUBCUT USEASDIRECTD RF: 0 Stand-Alone Forms: [facility] Discharge Orders: Discharge Order (Routine); Ordered 01/19/19 Ordered By: Chuyita Agosto Admission Data Admit Date/Time: 01/15/19 14:06 Attending Provider: Chuyita Dior Admit Provider: Alyx Sears Primary Care Provider: Fan Richter Other Providers: Alyx Sears ; Jerry Cano III ; Guicho Andres Service: Telemetry
--- NOTE | 2019-01-19 15:05 | Pharmacy Report ---
Pharmacist Stroke Counseling - Date of Service January 19, 2019 - Scope: Pharmacy has been consulted to provide medication discharge counseling for this patient admitted with acute embolic stroke as per the Pharmacist Discharge Counseling for Stroke Patients Protocol. - Medications on Discharge: Home Medications Medication Instructions Recorded Confirmed insulin lispro 0 unit SUBCUT USEASDIRECTD 01/15/19 01/15/19 New Rx's Medication Instructions Recorded apixaban [Eliquis] 5 mg PO BID #60 tab 01/19/19 atorvastatin 80 mg PO QAM #30 tab 01/19/19 - Action: The above medications, specifically ones for stroke treatment/prophylaxis, have been reviewed in detail with the patient and/or patient abrasives sales representative(s) prior to discharge. This includes indication, common adverse reactions, drug interactions, and medication administration. Medication counseling has been employed using the teach-back method to ensure understanding. - Outcome: The patient and/or patient abrasives sales representative(s) have demonstrated understanding of the medications. Please note, they are aware that the pharmacist will call them within 72 hours post-discharge to confirm that the appropriate medications are being taken and answer any further medication related questions the patient might have at that time. Contact information Individual to be contacted: patient Phone number: [phone] Best time to call: anytime Had a discussion with patient an family member (Shaunna) regarding OTC pain relievers. I recommended that the patient avoid taking products that contain aspirin and NSAIDs due to increased risk of bleeding. I advised them that Tylenol is preferred and if this does not provide sufficient pain relief to have a discussion with PCP. Extensively reviewed signs/sympt. of bleeding. Reinforced that patients dose of lipitor is being increased from 40 mg daily to 80 mg daily. Thank you for allowing pharmacy to be involved in the care of this patient. Please call [phone] or [phone] with any additional questions
== END 2019-01-19 15:31 | disposition home or self-care (01) | DRG 65 ==
LOC: ED 10:52 → 2S 14:06 → SUATTDRO 14:06 → 2S 15:22